=== PATIENT | female | born 1970 | race Caucasian/White ===

== ENCOUNTER 2023-01-30 13:11 | Outpatient (CLI) | payer BC, SELFPAY | END 2023-01-30 13:12 | disposition home or self-care (01) | LOC: NFLDREF 13:12 | PROVIDERS: Visit Provider Physician Assistant | DX: N93.8 Other specified abnormal uterine and vaginal bleeding (principal); R53.83 Other fatigue; E55.9 Vitamin D deficiency, unspecified; I10 Essential (primary) hypertension | CPT/HCPCS: 84443 ==

== ENCOUNTER 2023-02-01 07:00 | Outpatient (CLI) | payer BC, SELFPAY ==
--- NOTE | 2023-02-01 07:15 | CRLHL7_ITS ---
For Patients: As a result of the Century Cures Act, medical imaging exams and procedure reports are released immediately into your electronic medical record. You may view this report before your referring provider. If you have questions, please contact your health care provider. CLINICAL HISTORY: Abnormal bleeding right-sided pain TECHNIQUE: Real time, cosme scale images were acquired of the pelvis using a transabdominal and transvaginal approach. Color Doppler analysis was performed of the ovaries. FINDINGS: The uterus measures 12.5 x 5.6 x 7.2 centimeters. The endometrium measures 1.1 centimeters. The right ovary measures 6.5 x 3.6 x 4.7 centimeters right ovarian cyst measuring 4.6 x 2.7 x 4.1 centimeters normal blood flow to the right ovary on color Doppler. The left ovary is surgically absent. Myomatous uterus. Posterior uterine fibroid measuring 4.9 x 2.3 x 4.5 centimeters which appears to impinge on the endometrium. Subserosal small mid uterine fibroid measuring 1.5 x 1.2 x 1.7 centimeters. A fundal fibroid measuring 2 x 1.6 x 2 centimeters possible impingement of the endometrium as well. IMPRESSION: 1. 1.1 centimeter endometrium. Myomatous uterus with 2 fibroids, one small fibroid in the fundus and a posterior uterine fibroid could be impinging on the endometrium. Dictated by Jimena Diaz MD @ 02/03/2023 10:18:58 AM (Electronically Signed)
== END 2023-02-01 07:01 | disposition home or self-care (01) ==
PROVIDERS: Visit Provider Physician Assistant
DX: N93.8 Other specified abnormal uterine and vaginal bleeding (principal); D25.9 Leiomyoma of uterus, unspecified
CPT/HCPCS: 76830; 76856; 93976

== ENCOUNTER 2023-06-05 14:20 | Outpatient (CLI) | payer BC, SELFPAY ==
--- NOTE | 2023-06-05 15:00 | CRLHL7_ITS ---
For Patients: As a result of the Century Cures Act, medical imaging exams and procedure reports are released immediately into your electronic medical record. You may view this report before your referring provider. If you have questions, please contact your health care provider. INDICATION: FOLLOW UP RIGHT OVARIAN CYST COMPARISON: 02/01/2023 TECHNIQUE: 2D cosme scale and color Doppler images were acquired of the pelvis using a transabdominal and transvaginal approach. FINDINGS: Multiple uterine fibroids again noted. There is a posterior mid fibroid measuring 4.2 x 3.2 x 4.0 cm with mild mass effect upon the endometrium. A posterior fundal fibroid is present measuring 1.5 x 1.1 x 1.7 cm. There is also a posterior fundal fibroid measuring 2.0 x 1.7 x 1.5 cm. Uterus measures 13.5 cm in length by 5.6 cm in AP diameter by 7.8 cm in transverse dimension. The myometrium has a heterogeneous echotexture. The endometrial lining measures 9 mm in composite thickness. The right ovary measures 4.6 x 2.7 x 2.6 cm in size and the left ovary is absent. The right ovary demonstrates normal arterial and venous blood flow on color Doppler analysis. There are no suspicious fluid collections within the cul-de-sac. IMPRESSION: Previously noted right ovarian cyst has since resolved. Multiple uterine fibroids again noted measuring up to 4.2 cm. Dictated by Henrry Can MD @ 06/06/2023 10:47:46 AM (Electronically Signed)
== END 2023-06-05 14:21 | disposition home or self-care (01) ==
PROVIDERS: PCP Internal Medicine; Visit Provider Obstetrics & Gynecology
DX: N93.8 Other specified abnormal uterine and vaginal bleeding (principal); D25.9 Leiomyoma of uterus, unspecified
CPT/HCPCS: 76830; 76856

== ENCOUNTER 2023-11-21 09:53 | Outpatient (CLI) | payer BC, SELFPAY | END 2023-11-21 09:54 | disposition home or self-care (01) | LOC: NFLDREF 11-25 15:46 | PROVIDERS: PCP Internal Medicine; Referring Provider Internal Medicine; Visit Provider Obstetrics & Gynecology | DX: R10.2 Pelvic and perineal pain (principal) | CPT/HCPCS: 87086 ==

== ENCOUNTER 2023-12-03 11:06 | Outpatient (CLI) | payer BC, SELFPAY ==
--- NOTE | 2023-12-03 11:30 | CRLHL7_ITS ---
For Patients: As a result of the Century Cures Act, medical imaging exams and procedure reports are released immediately into your electronic medical record. You may view this report before your referring provider. If you have questions, please contact your health care provider. INDICATION: Pelvic pain, abnormal uterine bleeding, increased bloating. TECHNIQUE: Transabdominal and transvaginal pelvic ultrasound. FINDINGS: Uterus is anteverted and measures 14.3 x 6.1 x 7.9 cm. The body and fundus are poorly seen on the transvaginal images due to shadowing. Endometrial stripe thickness is between 1.2 1.8 cm. 2 cm mass in the fundal endometrium, probably either a polyp or submucosal leiomyoma. Additional leiomyomas measuring 2.9 and 1.5 cm in the posterior uterus. Left ovary has been surgically removed. Right ovary was seen transabdominally only. It appears normal and is normal color and spectral Doppler flow. IMPRESSION: 1. 2 cm mass in the fundal endometrium, most likely either a submucosal leiomyoma or polyp. 2. Additional leiomyomas in the uterus. 3. Left oophorectomy. Dictated by Pilo Judge MD @ 12/04/2023 12:07:06 PM (Electronically Signed)
== END 2023-12-03 11:07 | disposition home or self-care (01) ==
LOC: US 11:06
PROVIDERS: PCP Internal Medicine; Visit Provider Obstetrics & Gynecology
DX: R10.2 Pelvic and perineal pain (principal); R19.00 Intra-abdominal and pelvic swelling, mass and lump, unspecified site; D25.9 Leiomyoma of uterus, unspecified; N84.1 Polyp of cervix uteri; N93.8 Other specified abnormal uterine and vaginal bleeding
CPT/HCPCS: 76830; 76856; 93976

== ENCOUNTER 2023-12-10 10:00 | Outpatient (CLI) | payer BC, SELFPAY | END 2023-12-10 10:01 | disposition home or self-care (01) | LOC: NFLDREF 12-13 02:41 | PROVIDERS: PCP Internal Medicine; Referring Provider Internal Medicine; Visit Provider Obstetrics & Gynecology | DX: E83.52 Hypercalcemia (principal); Z13.29 Encounter for screening for other suspected endocrine disorder | CPT/HCPCS: 80053; 82306; 83970; 84439; 84443 ==

== ENCOUNTER 2023-12-14 07:29 | Outpatient (CLI) | payer BC, SELFPAY ==
--- NOTE | 2023-12-14 08:00 | CRLHL7_ITS ---
For Patients: As a result of the Century Cures Act, medical imaging exams and procedure reports are released immediately into your electronic medical record. You may view this report before your referring provider. If you have questions, please contact your health care provider. Indication: LEIOMYOMA OF UTERUS, ABD BLOATING, ABD + PELVIC PAIN MYOMATOUS UTERUS Technique: CT Abdomen/Pelvis W/ 95CC ISOVUE 370 Please note that all CT scans at this facility use dose modulation, iterative reconstruction, and/or weight-based dosing when appropriate to reduce radiation dose to as low as reasonably achievable. Comparison: 11.19.17 Findings: Mild linear subsegmental atelectasis within the anterior left lung base. No pleural effusion. Small pericardial effusion. Subcentimeter cysts within the liver are present. Gallbladder absent. No biliary obstruction. Spleen is normal. Normal adrenal glands. 3 millimeter calcification lower pole left kidney. Bilateral water attenuation renal cysts are present measuring up to 2.8 cm. Small hiatal hernia. No bowel obstruction, free air, free fluid or adenopathy. The appendix normal. No abdominal wall hernia. Bladder is normal. Fibroid uterus noted with a prominent left-sided uterine fibroid measuring 5.3 cm. Right ovarian cyst is present measuring 2.8 cm Impression: Posterior left uterine fibroid measures 5.3 cm. 2.8 cm right ovarian cyst. Subcentimeter intrahepatic cysts. Bilateral renal cysts measuring up to 2.8 cm. No hydronephrosis. Small pericardial effusion. Please note that all CT scans at this facility use dose modulation, iterative reconstruction, and/or weight-based dosing when appropriate to reduce radiation dose to as low as reasonably achievable. Dictated by Henrry Can MD @ 12/14/2023 10:40:00 AM (Electronically Signed)
== END 2023-12-14 07:30 | disposition home or self-care (01) ==
LOC: CT 07:29
PROVIDERS: PCP Internal Medicine; Visit Provider Internal Medicine Nephrology
DX: D25.9 Leiomyoma of uterus, unspecified (principal); I31.39 Other pericardial effusion (noninflammatory); N83.201 Unspecified ovarian cyst, right side; R19.8 Other specified symptoms and signs involving the digestive system and abdomen; N93.9 Abnormal uterine and vaginal bleeding, unspecified; R10.2 Pelvic and perineal pain
CPT/HCPCS: 74177; Q9967

== ENCOUNTER 2023-12-20 08:06 | Day surgery (SDC) | payer BC, SELFPAY ==
[2023-12-20] VITALS (19 sets, daily range): BP systolic 99–148; BP diastolic 52–94; PULSE 75–92; RESP 14–17; TEMP 36.5–37.2; O2SAT 93–100; BMI 32.9
[2023-12-20] MEDS: LACTATED RINGERS 1000 ML 1,000 ML 100 ML IV ×2 (08:25→11:25)
--- NOTE | 2023-12-20 08:38 | W.PM.H&PU ---
History & Physical Update History & Physical Update H&P Reviewed and patient assessed: No changes noted
[2023-12-20] MEDS: SODIUM CHLORIDE 0.9 % (FLUSH) 10 ML SYRINGE IVF (09:23)
[2023-12-20 09:28] LABS: Hemoglobin* 13.3 gm/dL (12.0-16.0)
[2023-12-20 09:44] LABS: Creatinine* 0.8 mg/dL (0.5-1.5); Est. Creatinine Clearance* 72.65; Estimated Glomerular Filt Rate 90 ml/min
[2023-12-20 09:52] LABS: HCG Qualitative Serum* Negative (Negative)
[2023-12-20] MEDS: metroNIDAZOLE 500 MG/100 ML PIGGYBACK 100 MG IVPB (10:35)
[2023-12-20] MEDS: GENTAMICIN 340 MG in 0.9 % SODIUM CHLORIDE 100 ml 100 ML 108.5 MG IVPB (10:40)
--- NOTE | 2023-12-20 11:12 | P.NB_ITS ---
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 Images saved: Yes Medications given in 5ml increments after negative aspiration: Marcaine %: 0.25 mL: 30 Needle gauge: 20 and Exparel mL: 10 Patient tolerated procedure well: Yes Additional comments: Needle noted between internal oblique and transversus abdominus. Local spread visualized Block Charges Block Charge (with Pro Fee): TAP Bilateral Use of Ultrasound Machine for Block: Yes- US Guidance/pain block
--- NOTE | 2023-12-20 11:12 | W.ANESCHARGE ---
Anesthesia Charges Start Date/Time Anesthesia Start Date: 12/20/23 Anesthesia Start Time: 10:02 Stop Date/Time Anesthesia Stop Date: 12/20/23 Anesthesia Stop Time: 13:30
[2023-12-20] MEDS: BUPIVACAINE 0.25% 30 ML INJECTION (12:55)
--- NOTE | 2023-12-20 13:29 | W.PM.GYNPROC ---
Procedure Note Date of procedure: 12/20/23 Will [facility] bill your pro fee for this procedure?: Yes Pre-op diagnosis: Abnormal uterine bleeding, uterine fibroids and endometrial polyps Post-op diagnosis: Abnormal uterine bleeding, uterine fibroids and endometrial polyps Procedure: Total laparoscopic hysterectomy, right salpingectomy, cystoscopy Anesthesia: GETA Complications: None Surgeon: Myesha Bassett MD [employer] Pumping Station Helper: Sherry Asencio Estimated blood loss (mL): 250 IV fluids (mL): 1,700 Urine Output (mL): 600 Pathology: specimen obtained, sent to pathology (Uterus, right fallopian tube ) Condition: stable Disposition: floor Findings: Normal external female genitalia. Bimanual exam pelvic exam completed prior to sterilizing field, uterus anteverted of about 14cm and mobile. Speculum exam: large, multiparous cervix w/o gross lesions or abnormal discharge. Intra abdominal findings: Grossly normal liver, stomach and intestines. Uterus anteverted of about 14-15cm. Evidence of previous left salpingo- oophorectomy, grossly normal right fallopian tube. Right ovary of about 3cm and benign appearing small hemorrhagic cyst of about 1.5cm. Procedure Description: DESCRIPTION OF PROCEDURE: After obtaining informed consent, the patient was taken to the operating room where general anesthesia was obtained without difficulty. She was prepared and draped in the normal sterile fashion in the low dorsal lithotomy position. A Hendrix catheter was inserted into the bladder and left to gravity drainage. A medium Graves open-sided speculum was introduced into the vagina. The cervix was visualized and grasped along its anterior lip with a single-tooth tenaculum. The uterus was gently sounded. Sound length was found to be 8 cm. No need for cervical dilation. I then placed a x- large VCare uterine manipulator. The tenaculum and speculum were removed. The green VCare cup was digitally pressed up against the cervix and then cinched in place with the blue accessory cup. I then changed gloves and my attention was turned to the abdomen. The superior aspect of the umbilical fold was injected with 0.25% Marcaine plain. A 5 mm vertical incision was then made within the umbilical fold using a scalpel. A direct entry technique was used and a 5 mm laparoscopic port with CO2 gas set at 5mmHg was introduced under direct visualization. The trocar was removed leaving the sleeve in place. The CO2 gas flow was turned to high flow to achieve pneumoperitoneum. The 5 mm laparoscope was used then to carefully inspect the abdomen and pelvis with findings noted above. Pictures were taken for documentation purposes. The patient was placed in Trendelenburg positioning. Two additional ports were placed in the right and left lower quadrants under direct visualization after first anesthetizing the skin and fascia with 0.25% Marcaine plain. On the left side a 11mm port was utilized and on the right side a 5mm port placed. An additional 5mm port was placed on the abdomen at the level of the umbilicus to the left of umbilicus, about 3-4 cm lateral from umbilicus under direct visualization. Once the ports were in place, the VCare manipulator was used to elevate the uterus. The ureters were identified bilaterally along their courses in the pelvic sidewalls. The VCare cup was visualized and palpated with a blunt grasper. The right tube was elevated with a graspers. The Thunderbeat device was used to dissect the tube from it's ovarian and broad ligament and cornual attachments before removing the tube through a lower port. Excellent hemostasis was obtained. The remaining broad ligament attachments were sealed and transected with the Thunderbeat device. The right round ligament was then sealed in a wide swath and transected with the Thunderbeat, excellent hemostasis was obtained. The broad ligament was then opened using the Thunderbeat anteriorly and posteriorly along the cervix from the right within the confines of the VCare cup. Pressure was maintained on the uterine manipulator the whole time. The right uterine vessels were sealed in a wide swath and transected with the Thunderbeat, then the tissues over the VCare cup edge on the right side were thinned using the Thunderbeat to the midline posteriorly and anteriorly so that the fascial layer could be identified. The left round ligament was then sealed in a wide swath and transected with the Thunderbeat, excellent hemostasis was obtained. The broad ligament was then opened using the Thunderbeat anteriorly and posteriorly along the cervix from the left within the confines of the VCare cup. Pressure was maintained on the uterine manipulator the whole time. The left uterine vessels were sealed in a wide swath and transected with the Thunderbeat, then the tissues over the VCare cup edge on the left side were thinned using the Thunderbeat to the midline posteriorly and anteriorly so that the fascial layer could be identified. Once an adequate dissection was made circumferentially, the Thunderbeat device was utilized to dissect until identification of the green Vcare cup, then a Monopolar spatula was utilized to dissect tissue tissue circumferentially around the cervix within the groove of the VCare cup. On the left side a small vaginal vessel was noted to be bleeding and pumping, attempts to coagulate this vessel were attempted with the Thunderbeat device, monopolar device unsuccessfully. Decision was made to culminate colpotomy and remove uterus so that the bleeder could be suture ligated. Colpotomy was continued and completed circumferentially, from the vagina the uterine manipulator and the uterus were removed. This created pressure on the small bleeding vessel and after removal of the uterus the site was noted to be hemostatic. A glove with 3 sponges was placed in the vagina to aid in maintaining pneumoperitoneum. The vaginal cuff was reapproximated in a running fashion with a V-Loc suture starting from the right side and running across to the left and then back to the midline where the suture was cut flush with the tissues. The pelvis was copiously irrigated and hemostasis visualized. Preparations were then made for cystoscopy. Fluorescein was administered intravenously along with the IV fluids. The Hendrix catheter was removed. The patient was flattened out. Cystoscopy was performed using sterile normal saline as distending medium. The bladder was carefully inspected and noted to be free of filling defects or suture material. Both ureteral orifices were easily visualized and fluorescein tinged urine jets were noted from both sides. The cystoscope was then removed. The Hendrix catheter was replaced into the bladder. Speculum exam of the vagina completed and noted complete closure of the vaginal tissue, w/o evidence of bleeding. Attention was once again turned to the abdomen. The abdomen and pelvis were again irrigated and inspected for hemostasis. Attention was then placed to the 11mm port site and under direct visualization using a Bart-Smith system the fascia was closed. All instruments were then removed under direct visualization. Pneumoperitoneum was allowed to escape. The skin at all port sites was closed in a subcuticular fashion with 4-0 Monocryl. LiquiBand was then placed over the incisions. The patient tolerated the procedure well. Sponge, lap, needle, and instrument counts were reported as correct x2. The patient was taken to the recovery room awake and in stable condition. She did receive Metronidazole 500mg IV and Gentamicin 340mg IV x1 preoperatively. PATHOLOGY SPECIMEN(S): Uterus and right fallopian tube.
--- NOTE | 2023-12-20 13:37 | W.ANESCHARGE ---
Anesthesia Charges Start Date/Time Anesthesia Start Date: 12/20/23 Anesthesia Start Time: 10:02 Stop Date/Time Anesthesia Stop Date: 12/20/23 Anesthesia Stop Time: 13:30
[2023-12-20] MEDS: KETOROLAC 30 MG/ML inj IVP (19:30)
[2023-12-20] MEDS: ACETAMINOPHEN 325 MG TABLET 1000 MG PO (21:35)
[2023-12-21] MEDS: KETOROLAC 30 MG/ML inj IVP (01:45)
[2023-12-21 02:00] VITALS: BP 105/62; PULSE 66; RESP 16; TEMP 37; O2SAT 96
[2023-12-21] MEDS: LORazepam 0.5 MG TABLET PO (02:16)
[2023-12-21 06:23] VITALS: BP 90/52; PULSE 79; RESP 16; TEMP 37.1; O2SAT 96
[2023-12-21 07:13] LABS: Hemoglobin* 10.9 gm/dL (12.0-16.0)
--- NOTE | 2023-12-21 07:31 | P.DS_ITS ---
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 Indications for surgery were menorrhagia. Intraoperative findings were notable for surgical absence of the left tube and ovary. The uterus was enlarged and bulky, with specimen weight 252 g. Cystoscopy revealed bilateral ureteral jets. There were no complications. Postoperative course has been uneventful. Vitals have been stable. She has remained afebrile. Today, on postoperative day 1, she reports the pain is well controlled. She has been able to ambulate Without difficulty. She is tolerating regular diet. She is passing flatus. Hendrix catheter has been removed, and she is voiding without difficulty. She denies heavy vaginal bleeding. 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 Laparoscopic port sites clean, dry, and intact. Soft, no rebound or guarding. 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 - DS: Data Data Completed and Pending Labs on day of discharge: Labs from last 24 hours 12/21/23 12/20/23 07:00 09:22 Hgb 10.9 L 13.3 Creatinine Pending 0.8 Estimated Creat Clear 72.65 Estimated GFR Pending 90 HCG, Qual Negative Creatinine 0.9 this morning, estimated GFR 78 Procedures Procedures: Procedures Operation Date: 12/20/23 09:40 Actual Procedure Side Surgeon p M/S-Total Laparoscopic Hysterectomy, Right Salpingectomy, Cystoscopy Romina Bassett MD Complications: none Discharge Plan Discharge Disposition: Home w/ Parent or Adult Discharging Surgeon: Romina Bassett Follow-Up Appointment: Dr. Glez, [facility], January 02 @ 8:45 am Prescriptions: New acetaminophen 325 mg Tablet 1,000 mg PO Q6H PRN (Reason: minor pain) Qty: 0 0RF docusate sodium 100 mg Capsule 100 mg PO BID PRN (Reason: Constipation) Qty: 0 0RF ibuprofen 600 mg Tablet 600 mg PO Q6H Qty: 0 0RF oxycodone 5 mg Tablet 5 mg PO Q4H PRN (Reason: Moderate Pain) Qty: 20 0RF Continued albuterol 90 mcg/actuation aerosol 2 spray inhalation .PRN PRN lorazepam 0.5 mg tablet 0.5 mg PO .Daily as needed PRN albuterol sulfate 2.5 mg /3 mL (0.083 %) solution for nebulization 2.5 mg inhalation .PRN PRN levalbuterol tartrate [Xopenex HFA] 45 mcg/actuation HFA aerosol inhaler 2 inh inhalation Q4-6H PRN cetirizine [All Day Allergy (cetirizine)] 10 mg tablet 10 mg PO DAILY PRN budesonide 1 mg/2 mL suspension for nebulization 1 mg inhalation BID Activity Level: Activity as Tolerated Activity Detail: No driving while taking narcotic pain medicines. Do not submerge incisions under water. Nothing per vagina for 6 weeks. No heavy lifting greater than 20 lb. Discharge Diet: Regular Patient Instructions: Laparoscopic Hysterectomy (DC) Follow-up: Romina Bassett MD [Staff Physician] - 01/03/24 8:45 am Elsi Chakraborty [Primary Care Provider] - Discharge Orders: Discharge Order (Routine); Ordered 12/21/23 Ordered By: Sherry Asencio Consulting provider completed their portion of the discharge: Yes
[2023-12-21 07:34] LABS: Creatinine* 0.9 mg/dL (0.5-1.5); Est. Creatinine Clearance* 64.58; Estimated Glomerular Filt Rate 78 ml/min
[2023-12-21] MEDS: ACETAMINOPHEN 325 MG TABLET 1000 MG PO (07:54)
[2023-12-21 09:00] VITALS: BP 106/62; PULSE 73; RESP 16; TEMP 37.1; O2SAT 97
[2023-12-21] MEDS: IBUPROFEN 600 MG TABLET PO (12:14)
== END 2023-12-21 13:15 | disposition home or self-care (01) ==
LOC: OR 08:07 → OB 08:11
PROVIDERS: Anesthesiology; PCP Internal Medicine; Visit Provider Obstetrics & Gynecology
PROC: 0UT94ZZ Resection of Uterus, Percutaneous Endoscopic Approach (ICD-10-PCS; CPT 58573; principal; 2023-12-20 09:30)
DX: N93.8 Other specified abnormal uterine and vaginal bleeding (principal); N84.0 Polyp of corpus uteri; D25.1 Intramural leiomyoma of uterus; G89.18 Other acute postprocedural pain; N83.201 Unspecified ovarian cyst, right side; Z90.79 Acquired absence of other genital organ(s); Z90.721 Acquired absence of ovaries, unilateral
CPT/HCPCS: 58573; 00840; 36415; 64488; 76942; 82565; 84703; 85018; 86850; 86900; 86901; 88307; A9270; C9290; J0330; J0665; J1100; J1580; J1630; J1836; J1885; J2250; J2405; J2704; J3010; J3490; J7120

== ENCOUNTER 2023-12-29 16:47 | Emergency (ER) | payer BC, SELFPAY ==
[2023-12-29 16:55] VITALS: BP 145/73; PULSE 75; RESP 16; TEMP 36.3; O2SAT 98; BMI 32.6
--- NOTE | 2023-12-29 17:19 | ED_ITS ---
HPI - General Adult General Chief complaint: Post Op Complication Stated complaint: post op (hysterectomy) swelling Time Seen by Provider: 12/29/23 16:53 History of Present Illness HPI narrative: This 53-year-old female comes in reporting some redness around the laparoscopic sites on her abdomen from a surgery that occurred 9 days ago. She had a hysterectomy at that time and has been doing well since then. Today she developed some erythema extending out around the laparoscopic sites in her right and left lower quadrants and also in her mid abdomen. The area in her mid abdomen that has erythema and warmth is approximately 5 cm in diameter. She states that this has occurred today. She does not report any fever. There is no drainage from these surgical wounds. Related Data Home Medications ?Medication ?Instructions ?Recorded ?Confirmed albuterol 90 mcg/actuation aerosol 2 spray inhalation .PRN PRN 01/30/23 12/20/23 inhaler albuterol sulfate 2.5 mg/3 mL 2.5 mg inhalation .PRN PRN 01/30/23 12/20/23 (0.083 %) solution for nebulization lorazepam 0.5 mg tablet 0.5 mg PO .Daily as needed PRN 01/30/23 12/20/23 budesonide 1 mg/2 mL suspension 1 mg inhalation BID 12/18/23 12/20/23 for nebulization cetirizine 10 mg tablet (All Day 10 mg PO DAILY PRN 12/18/23 12/20/23 Allergy (cetirizine)) levalbuterol tartrate 45 2 inh inhalation Q4-6H PRN 12/18/23 12/20/23 mcg/actuation aerosol inhaler (Xopenex HFA) Previous Rx's ?Medication ?Instructions ?Recorded acetaminophen 325 mg tablet 1,000 mg (3.0769 x 325 mg) PO Q6H 12/21/23 PRN minor pain #0 tabs docusate sodium 100 mg capsule 100 mg PO BID PRN Constipation #0 12/21/23 caps ibuprofen 600 mg tablet 600 mg PO Q6H #0 tabs 12/21/23 oxycodone 5 mg tablet 5 mg PO Q4H PRN Moderate Pain #20 12/21/23 tabs Allergies Allergy/AdvReac Type Severity Reaction Status Date / Time buspirone [From BuSpar] Allergy Mild Verified 12/29/23 16:55 cephalexin Allergy Hives Verified 12/20/23 08:46 desvenlafaxine Allergy Unknown Verified 12/29/23 16:55 doxycycline Allergy Rash Verified 12/29/23 16:55 levofloxacin Allergy Rash Verified 12/29/23 16:55 amoxicillin AdvReac Intermediate Unknown Verified 12/29/23 16:55 atomoxetine AdvReac Intermediate Unknown Verified 12/29/23 16:55 benzalkonium chloride AdvReac Intermediate Rash Verified 12/29/23 16:55 clarithromycin AdvReac Intermediate Hives Verified 12/29/23 16:55 escitalopram AdvReac Intermediate Anger Verified 12/29/23 16:55 fluticasone AdvReac Intermediate Headache Verified 12/29/23 16:55 hydrocortisone AdvReac Intermediate Unknown Verified 12/20/23 08:46 neomycin AdvReac Intermediate Unknown Verified 12/29/23 16:55 polymyxin B AdvReac Intermediate Unknown Verified 12/29/23 16:55 propylene glycol AdvReac Intermediate Unknown Verified 12/29/23 16:55 fluorestore Allergy eye Uncoded 12/20/23 09:33 swelling Review of Systems Status of ROS: Reports: 10 or more systems reviewed and unremarkable except as noted in History and below Narrative: Constitutional: No fevers, no weight gain or loss. Eyes: No discharge. No vision changes. HENT: No congestion, no sore throat, no ear pain. Cardiovascular: No chest pain, no palpitations. Respiratory: No shortness of breath, no wheezes, no cough. Gastrointestinal: No abdominal pain, no vomiting, no diarrhea. Genitourinary: No dysuria, no hematuria. Musculoskeletal: Normal range of motion. Skin: No rashes, no pruritis. Neurological: No dizziness, weakness, sensory change, speech change. Endo/Heme/Allergies: No bruising or bleeding. No polydipsia. Pysch: no suicidality, no anxiety, no insomnia. All other systems reviewed and are negative. 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 - Intestinal malabsorption, unspecified (ICD-10) Metabolic syndrome ?E88.810 - Metabolic syndrome (ICD-10) Low ferritin level ?R79.0 - Abnormal level of blood mineral (ICD-10) Wheat intolerance ?K90.41 - Non-celiac gluten sensitivity (ICD-10) Controlled substance agreement signed ?Z79.899 - Other longterm (current) drug therapy (ICD-10) Allergic rhinitis ?J30.9 - Allergic rhinitis, unspecified (ICD-10) Vitamin D deficiency ?E55.9 - Vitamin D deficiency, unspecified (ICD-10) History of vaginal delivery Eating disorder ?F50.9 - Eating disorder, unspecified (ICD-10) Endometrial polyp ?N84.0 - Polyp of corpus uteri (ICD-10) Surgical History (Updated 12/21/23 @ 07:32 by Sherry Asencio MD) History of D&C (06/26/16) ?Z98.890 - Other specified postprocedural states (ICD-10) History of cholecystectomy ?Z90.49 - Acquired absence of other specified parts of digestive tract (ICD- 10) History of laparoscopy (01/29/18) ?Z98.890 - Other specified postprocedural states (ICD-10) Family History (Updated 01/30/23 @ 11:54 by Kandy Davis PA-C) Mother Cirrhosis FH: mental illness Father High blood pressure Maternal Grandmother Breast cancer Maternal Grandfather Asthma Heart disease History of anesthesia problem Son Seizure disorder Social History (Updated 01/30/23 @ 14:19 by Kandy Davis PA-C) 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 Walks 2 times per week Nonsmoker, no alcohol use, no illicit drug use Safe at home and no concerns with abuse What is your current living situation?: I presently have a place to live Problems where you live: no known problems In the past 12 months, utilities in danger of being shut off: no In past 12 months, lack of transportation kept you from medical appts, meetings, work, or getting things needed for daily living: no In the past 12 mos, have been you worried that your food would run out before you had money to buy more?: never true In the past 12 mos, the food you bought just didn't last and you didn't have money to buy more?: never true Smoking Status: Never smoker How often do you have a drink containing alcohol: never AUDIT-C Alcohol total score: 0 Non-prescribed substance use: denies use Caffeine: No How often does anyone, including family, friends and others, physically hurt you : never How often does anyone, including family, friends and others, insult or talk down to you: never How often does anyone, including family, friends and others, threaten you with harm: never How often does anyone, including family, friends and others, scream or curse at you: never service: No Exam Narrative: Exam Narrative: Constitutional: Well-developed, well-nourished, no acute distress. HEENT: Normocephalic, atraumatic. Neck: Normal range of motion. Nontender. Supple. Heart: Regular. No murmurs. Normal rate. Intact distal pulses. Lungs: Clear to auscultation. No chest discomfort. No wheezes, rhonchi, or rales. Abdomen: Normal bowel sounds. Nontender. No rebound tenderness. Genitalia: Deferred. Back: No midline tenderness. Normal range of motion. Extremities: Normal range of motion. No injury. Skin: Intact. No rash. Warm. No erythema or pallor. Surgical laparoscopic wounds on the abdomen are intact but 3 of them have some surrounding erythema that is new today. No sign of abscess or fluid collection. No drainage. Neurologic: No altered sensation. No weakness. Alert and oriented. Psychiatric: No suicidality. No anxiety or depression. No insomnia. Nursing notes and vitals signs are reviewed. Const: Vital Signs, click to edit/add: Vital Signs - 24 hr 12/29/23 16:55 Temperature 97.3 F L Pulse Rate [Pulse Oximeter] 75 Respiratory Rate 16 Blood Pressure [Le ft Upper Arm] 145/73 H Pulse Oximetry 98 Oxygen Delivery Me thod Room Air Course Vital Signs Vital signs: Initial Vital Signs Temperature 97.3 F L 12/29/23 16:55 Temperature Source Temporal Artery Scan 12/29/23 16:55 Pulse Rate 75 12/29/23 16:55 Respiratory Rate 16 12/29/23 16:55 Blood Pressure 145/73 H 12/29/23 16:55 Blood Pressure Mean 97 12/29/23 16:55 Blood Pressure Position High-Fowlers 12/29/23 16:55 Pulse Oximetry 98 12/29/23 16:55 Oxygen Delivery Method Room Air 12/29/23 16:55 Vital Signs Temperature 97.3 F L 12/29/23 16:55 Pulse Rate 75 12/29/23 16:55 Respiratory Rate 16 12/29/23 16:55 Blood Pressure 145/73 H 12/29/23 16:55 Pulse Oximetry 98 12/29/23 16:55 Oxygen Delivery Method Room Air 12/29/23 16:55 Temperature 97.3 F L 12/29/23 16:55 Pulse Rate 75 12/29/23 16:55 Respiratory Rate 16 12/29/23 16:55 Blood Pressure 145/73 H 12/29/23 16:55 Pulse Oximetry 98 12/29/23 16:55 Oxygen Delivery Method Room Air 12/29/23 16:55 Medical Decision Making MDM Narrative Medical decision making narrative: This patient had a hysterectomy 9 days ago and now is having some skin changes at her surgical sites that is suspicious for an evolving cellulitis. There is no sign of abscess or drainage. I did discuss lab and imaging options but indicated that these would likely have low yield for determining how to treat. The patient has numerous allergies. She did received prescription for doxycycline and does have a follow-up appointment with OBGYN clinic in 5 days. Discharge Plan Discharge Clinical Impression: Cellulitis Patient Disposition: Home, Self-Care Condition: Stable Additional Instructions: Take medication as prescribed. Follow up with OBGYN clinic appointment as sched uled. Return if worsening. Prescriptions: No Action albuterol 90 mcg/actuation aerosol 2 spray inhalation .PRN PRN lorazepam 0.5 mg tablet 0.5 mg PO .Daily as needed PRN albuterol sulfate 2.5 mg /3 mL (0.083 %) solution for nebulization 2.5 mg inhalation .PRN PRN levalbuterol tartrate [Xopenex HFA] 45 mcg/actuation HFA aerosol inhaler 2 inh inhalation Q4-6H PRN cetirizine [All Day Allergy (cetirizine)] 10 mg tablet 10 mg PO DAILY PRN budesonide 1 mg/2 mL suspension for nebulization 1 mg inhalation BID acetaminophen 325 mg Tablet 1,000 mg PO Q6H PRN (Reason: minor pain) Qty: 0 0RF docusate sodium 100 mg Capsule 100 mg PO BID PRN (Reason: Constipation) Qty: 0 0RF ibuprofen 600 mg Tablet 600 mg PO Q6H Qty: 0 0RF oxycodone 5 mg Tablet 5 mg PO Q4H PRN (Reason: Moderate Pain) Qty: 20 0RF Follow Up/Referrals: Elsi Chakraborty [Primary Care Provider] - Stand Alone Forms: [facility] Info Instructions
--- OUTSIDE RECORDS SUMMARY | 2023-12-29 17:31 | XMS_ITS | Clinical Summary ---
Author Organization [facility] Address [address] [address] Care Team Providers Care Case Checker Name Role Phone Ishaan Lomas DO Primary Care Provider [phone] Source Comments You are receiving this document as you are listed as the primary care provider,follow-up provider, or the patient has been referred to you for consultation.This is in compliance with the Medicare and[facility] EHR Incentive Program,which states Providers who transition their patient to another setting of careor provider of care or refers their patient to another provider of care shouldprovide summary care record for each transition of care or referral. [employer] Allergies Active Allergy Reactions Criticality Noted Date Comments Amoxicillin Rash 11/25/2015 Atomoxetine Hives 11/25/2015 Benzalkonium Chloride Other, see comments 11/24 PN: reddened, swollen skin with topical use Clarithromycin Hives 11/25/2015 Escitalopram Hives High 06/05/2017 Fluticasone 07/03/2011 Other reaction(s): Headache Hydrocortisone 06/16/2016 Other reaction(s): Other (see comments) Cerner list no reaction Neomycin-Bacitracin Zn-Polymyx Rash 01/02/2014 Other reaction(s): Edema Penicillins 12/17/2018 Fluoxetine 12/17/2018 Sertraline 12/17/2018 Medications Medication Sig Dispensed Refills Start Date End Date Status cetirizine (ZYRTEC) 10 MG tablet Take 1 tablet by mouth daily (every 24 hours). 30 tablet 0 11/25/2015 Active triamcinolone (NASACORTAQ) 55 MCG/ACT nasal inhaler Place 2 sprays into each nostril daily (every 24 hours). Dose is for each nostril. Indications: NASAL CONGESTION 49.5 g 3 11/25/2015 Active albuterol 2.5 mg/3 mL, 0.083%, (PROVENTIL) nebulizer solution Inhale 1 Dose. 02/07/2010 Ac tive budesonide, INHALATION, (PULMICORT) 1 MG/2ML suspension Inhale 2 mL. 01/05/2015 Activ e budesonide, INHALATION, (PULMICORT) 1 MG/2ML suspension INHALE 1 VIAL PER NEBULIZER BID NEEDED FOR FLARES 0 10/31/2018 Active LORazepam (ATIVAN) 0.5 MG tablet TK 1 T PO Q 6 H PRA 0 11/15/2018 Ac tive Cholecalciferol (VITAMIN D3) 05657 units CAPS TK 1 C PO ONCE A WEEK FOR 8 DOSES 1 11/05/2018 Active ferrous sulfate 325 (65 Fe) MG tablet Take 325 mg by mouth daily with breakfast. Active multivitamin (THERAGRAN) tablet Take 1 Tablet by mouth daily. Active Probiotic Product (SUPER PROBIOTIC OR) Active Family History Medical History Relation Name Comments Anxiety Father Depression Mother Anxiety Son Relation Name Status Comments Father Mother Son Social History Tobacco Use Types Packs/Day Years Used Date Smoking Tobacco: Never Smokeless Tobacco: Never Alcohol Use Standard Drinks/Week Comments Never 0 (1 standard drink = 0.6 oz pur e alcohol) AUDIT-C Answer Date Recorded Frequency of Alcohol Consumption Never 12/17/2018 Average Number of Drinks Not on file 019 Frequency of Binge Drinking Not on file 02/2019 Sex and Gender Information Value Date Recorded Sex Assigned at Not on file Gender Identity Not on file Sexual Orientation Not on file Last Filed Vital Signs Vital Sign Reading Time Taken Comments Blood Pressure 151/112 12/17/2018 1:22 PM CDT Pulse 103 12/17/2018 1:22 PM CDT Temperature - - Respiratory Rate - - Oxygen Saturation 98% 11/25/2015 8:35 AM CDT Inhaled Oxygen Concentration - - Weight 74.8 kg (164 lb 14.5 oz) 12/17/2018 1:17 PM CDT Height 161.2 cm (5' 3.47) 12/17/2018 1:17 PM CD T Body Mass Index 28.79 12/17/2018 1:17 PM CDT Plan of Treatment Health Maintenance Due Date Last Done Comments Cervical Cancer Screening Due 1972 Colon Cancer Screening Plan Due 1972 Hep C Screening (Preventive Services) 1972 Mammogram 1972 HIV Screening (Preventive Services) 1988 Adult Preventive Visit 1990 HepB (1) 12/28/1991 DTaP/Tdap/Td (2 - Tdap) 07/27/2021 07/27/2011 Zoster/Shingles (1 of 2) 2022 COVID-19 Vaccine (1 - 2022-2 4 season) 2023 Cholesterol 12/18/2023 12/17/2018 Influenza (#1) 2024 HepA Aged Out No longer eligi ble based on patient's age to complete this topic Hib Aged Out No longer eligi ble based on patient's age to complete this topic IPV (Polio) Aged Out No longer eligi ble based on patient's age to complete this topic MCV4 Aged Out No longer eligi ble based on patient's age to complete this topic Pneumococcal Aged Out No longer eligi ble based on patient's age to complete this topic Procedures Procedure Name Priority Date/Time Associated Diagnosis Comments LIPID PANEL & DIRECT LDL (IF NEEDED) STAT 12/17/2018 2:06 PM CDT Eating disorder, unspecified type from Last 3 Months or Most Recently Relevant to Health Maintenance Results * (ABNORMAL) Lipid Panel and Direct LDL(If Needed) (12/17/2018 2:06 PM CDT) Cholesterol 202(H) 0 - 199 mg/dL 12/17/2018 4:47 PM CDT [facility] Triglyceride 103 <=149 mg/dL 12/17/2018 4:47 PM CDT [facility] HDL Cholesterol 43 >=40 mg/dL 9 4:47 PM CDT [facility] LDL, Calculated 138(H) <130 mg/dL 9 4:47 PM CDT [facility] Non HDL Chol, Calculated 159 <=159 mg/dL 12/17/2018 4:47 PM CDT [facility] Cholesterol/HDL Ratio 4.7 12/17/2018 4:47 PM CDT [facility] Hours Fasting 0 12/17/2018 4:47 PM CDT [facility] Blood Venipuncture / Unknown 12/17/2018 2:06 PM CDT 12/17/2018 3:50 PM CDT Neeru Dubon PA-C LAB_1 [facility] [address] [place] [address], [facility] from Last 3 Months or Most Recently Relevant to Health Maintenance Care Teams Case Checker Relationship Specialty Start Date End Date Ishaan Lomas DO [address] [facility] [place] [id number] PCP - General 10/29/15
--- OUTSIDE RECORDS SUMMARY | 2023-12-29 17:31 | XMS_ITS | Clinical Summary ---
Author Organization [employer] [facility] Address [place], [place] [address] Care Team Providers Care Senior Net Developer Name Role Phone Elsi Chakraborty Primary Care Provider Allergies Active Allergy Reactions Criticality Noted Date Comments Amoxicillin Rash Medium 06/25/2006 Benzalkonium Chloride Rash High 11/25/2015 PN: reddened, swollen skin with topical use Clarithromycin Hives High 06/25/2006 Cephalexin Hives,Diarrhea,Runn y Nose,Palpitations,C ough High 06/18/2020 Desvenlafaxine Succinate *Unknown Unknown 03/23/2021 Fluticasone Headache High 07/03/2011 Levofloxacin Rash Medium 06/09/2021 Escitalopram Oxalate *Unknown - Pt Doesn't Remember Unknown 01/11/2017 Doxycycline Rash Medium 06/14/2021 Neomycin Edema,Erythema High 03/23/2021 Krwikncx-Oxikgycito-Ozcqg yxin Edema,Erythema High 01/02/2014 Unlisted Allergen (Include Detail In Comments) Shortness Of Breath High 12/05/2019 Fluorestore (probiotic) Started having some swelling in her eyes, tongue was tingling, some sob. Atomoxetine Other - Describe In Comment Field High 06/12/2014 Voice changes. Medications Medication Sig Dispensed Refills Start Date End Date Status levalbuterol (XOPENEX HFA) 45 mcg/actuation inhalerIndication s:Wheezing without diagnosis of asthma Inhale 2 Puffs by mouth every 4 hours if needed. 1 Inhaler 2 04/30/2020 Active budesonide (PULMiCORT) 1 mg/2 mL neb suspensionIndicat ions:Post-COVID chronic cough Inhale 1 mg via a nebulizer two times daily. 60 mL 08/25/2022 Active albuterol (PROVENTIL) 0.083 % neb solutionIndicatio ns:Acute bronchitis, unspecified organism Inhale 3 mL (2.5 mg) via a nebulizer every 4 hours if needed for Shortness Of Breath or Cough 1st choice. 75 mL 1 11/03/2022 Active cetirizine (ZYRTEC) 10 mg tablet Take 1 Tablet (10 mg) by mouth once daily if needed for Allergy Symptoms. 0 04/06/2023 Active acetaminophen (Tylenol Extra Strength) 500 mg tablet Take 1,000 mg by mouth every 6 hours. Max acetaminophen dose: 4000mg in 24 hrs. Active ibuprofen (ADVIL; MOTRIN) 200 mg tablet Take 200 mg by mouth every 6 hours. Active EPINEPHrine (EPIPEN) 0.3 mg/0.3 mL auto-injectorIndi cations:Bee sting allergy Inject 0.3 mg (1 Pen) intramuscular each time if needed for Allergic Reaction. 2 Each 3 12/14/2023 Active oxyCODONE (ROXICODONE) 5 mg immediate release tablet Take 5 mg by mouth. 12/21/2023 Active polyethylene glycol 3350 (MIRALAX ORAL) Take by mouth. Active LORazepam (Ativan) 0.5 mg tabIndications:An xiety state Take 1 Tablet (0.5 mg) by mouth every 6 hours if needed for Anxiety or Sleep. 30 Tablet 2 01/06/2024 Active hydrOXYzine HCL (ATARAX) 25 mg tabletIndications :Neck pain, acute Take 1 Tablet (25 mg) by mouth every 6 hours if needed (pain). 25 Tablet 2 08/24/2023 4 Discontinue d(*Patient states no longer taking) LORazepam (Ativan) 0.5 mg tabIndications:An xiety state Take 1 Tablet (0.5 mg) by mouth every 6 hours if needed for Anxiety. 30 Tablet 1 10/12/2023 4 Discontinue d(Reorder (E-cancel not sent)) Active Problems Problem Noted Date Diagnosed Date Bee sting allergy 12/14/2023 Uterine leiomyoma 12/14/2023 Pap smear for cervical cancer screening 01/10/20 23 Overview: 01/2023 UNS/HPV negative. Plan: Pap/HPV due 01/2024. Stress at home 08/18/2022 Chronic constipation 08/11/2022 Influenza vaccination declined 07/05/2022 Pneumococcal vaccination declined 07/05/2022 COVID-19 vaccination declined 07/05/2022 Basal cell carcinoma 12/17/2020 Skin cancer 12/14/2020 Overview: BCC - 11/2020 on the central upper back. ED&C done on 01/04/21 with Rafita Yeager MD. Mild intermittent asthma without complication Metabolic syndrome 11/19/2019 Anemia 10/14/2019 Abnormal intestinal absorption 08/11/2019 Low ferritin level 07/14/2019 HTN (hypertension) 01/06/2019 Wheat intolerance 12/18/2018 History of left salpingo-oophorectomy 02/08/2018 ADHD (attention deficit hype ractivity disorder), inattentive type 12/28/2017 Controlled substance agreement signed 07/16/2017 Overview: Signed 07/13/2017 Dr Sherry Millan Psychiatry Eating disorder 10/09/2016 Metrorrhagia 06/16/2016 Major depressive disorder, recurrent episode, mi ld 12/03/2014 ALLERGIC RHINITIS 07/11/2006 Anxiety state, unspecified 07/11/2006 Vitamin D deficiency Resolved Problems Problem Noted Date Diagnosed Date Resolved Date Hemorrhoids, external 11/30/20212022 COVID-19 virus infection 05/19/202105/2024 ADHD (attention deficit hype ractivity disorder), inattentive type 12/28/2017 09/27/2018 Multiple somatic complaints 07/18/2017 01/12/2023 Eczema 06/16/2016 01/12/2023 MITRAL VALVE PROLAPSE 07/11/20062022 ADHD (attention deficit hype ractivity disorder) 09/27/2018 Encounters Date Type Department Care Team Description 12/28/2023 4:00 PM CDT Telemedicine [address] [address] Elsi Chakraborty, DO Mental Health Intake; Sleep Problem 12/26/[address] [place] [address] Elsi Chakraborty DO Refill Request (Epinephrine) 12/20/[address] [facility] [phone] Romina Bassett MD 12/19/[address] [place] [address] Elsi Chakraborty DO Results (CT Scan) 12/18/2023 Nurse Triage [address] [place] [address] Elsi Chakraborty DO Questions (Question regarding CT scan from 12/14/2023 for Frances Bassett MD [employer] ) 12/14/2023 3:40 PM CDT Office Visit [address] [place] [address] Elsi Chakraborty DO Mental Health Intake 12/14/2023 Orders Only [facility] Scanner 1 scan: (1-Ord) [place], ABDOMEN PELVIS, 12/14/2023 12/14/2023 Travel 12/07/2023 2:40 PM CDT Office Visit [address] [place] [address] Elsi Chakraborty DO Mental Health Intake 12/07/2023 Travel 12/05/2023 11:00 AM CDT Office Visit [address] [place] [address] Jaqueline Shultz MD Neck Pain/problem (lymph node swelling) 12/05/2023 Travel 12/03/2023 Orders Only [facility] Scanner 1 scan: (1-Ord) [facility] [place], 12/03/2023 11/30/2023 9:00 AM CDT Telemedicine [facility] [address] [place] [address] Usha Live NP Telehealth; Follow Up 11/29/2023 2:40 PM CDT Preop Visit [address] [place] [address] Elsi Chakraborty DO Preoperative Exam (Hysterectomy on 12/20/[address] Adhikari at [facility]) 11/29/2023 Travel 11/28/2023 Telephone [facility] [address] [place] [address] Usha Live NP Form (CSA) 11/26/2023 Telephone [facility] [address] [place] [address] Usha Live NP Appointment 11/21/2023 7:55 AM CDT Office Visit [address] [place] [address] Ly Maciel NP Medication Management 11/21/2023 Travel 11/13/2023 11:18 AM CDT - 11/13/2023 3:46 PM CDT Emergency [facility] [address] [place] [address] Neal Rico MD Atypical chest pain (Primary Dx); Adverse effect of drug, initial encounter Discharge Disposition: Home Self Care 11/13/2023 Travel 11/13/2023 Nurse Triage [address] [place] [address] Elsi Chakraborty DO Chest Pain 11/02/2023 3:40 PM CDT Office Visit [address] [place] [address] Elsi Chakraborty DO Mental Health Intake 11/02/2023 Travel 10/27/2023 Travel 10/16/2023 Orders Only [address] [place] [address] Elsi Chakraborty DO Screening (Colonoscopy order only) 10/12/2023 3:40 PM CDT Office Visit [address] [phone] Elsi Chakraborty, DO Mental Health Intake 10/12/2023 Travel from Last 3 Months Immunizations Name Administration Dates Next Due MMR 01/22/1991 Tdap 01/19/2022,07/27/2011 Varicella Vaccine 01/19/1995,12/13/1994 Family History Medical History Relation Name Comments Allergies Father Hypertension Father Allergies Maternal Grandfather Anesthesia Problem Maternal Grandfather Asthma Maternal Grandfather Heart Disease Maternal Grandfather Cancer-breast Maternal Grandmother Osteoporosis Maternal Grandmother Other Mother Cirrhosis Psychiatric illness Mother Alcohol/Drug Paternal Grandfather Seizures Son 5 Allergies Son 6 Asthma Son 7 Relation Name Status Comments Father Alive Maternal Grandfather Maternal Grandmother Mother Alive Paternal Grandfather Paternal Grandmother Sister Son 1 Alive Son 2 Alive Son 3 Alive Son 4 Alive Son 5 Son 6 Son 7 Social History Tobacco Use Types Packs/Day Years Used Date Smoking Tobacco: Never Passive Smoke Exposure: Past Smokeless Tobacco: Never Tobacco Cessation:Counseling Given: Not Answered Alcohol Use Standard Drinks/Week Comments Not Currently 0 (1 standard drink = 0.6 oz pur e alcohol) none PHQ-2 Answer Date Recorded PHQ-2 TOTAL SCORE 4 11/30/2023 Social Connections Answer Date Recorded Frequency of Communication with Friends and Fami ly 0 11/21/2023 Financial Resource Strain Answer Date R ecorded Difficulty of Paying Living Expenses 3 11/21/2023 Difficulty of Paying Living Expenses Not on file 11/21/2023 Food Insecurity Answer Date Recorded Worried About Running Out of Food in the Last Ye ar 1 11/21/2023 Transportation Needs Answer Date Record ed Lack of Transportation (Medical) 1 11/21/2023 Housing Stability Answer Date Recorded Unable to Pay for Housing in the Last Year 1 11/21/2023 Sex and Gender Information Value Date Recorded Sex Assigned at Not on file Gender Identity Not on file Sexual Orientation Not on file Obstetrics History Para Term AB IAB SAB Ectopic Multiple Livin g Live Births 6 4 4 0 2 0 2 0 0 4 Date Outcome GA Total Labor Labor/2nd/3rd Weight Sex Type Anes PTL Kena A1 A5 Name Clin Term Term Term SAB SAB Term Last Filed Vital Signs Vital Sign Reading Time Taken Comments Blood Pressure 132/68 12/14/2023 4:02 PM CDT Pulse 83 12/14/2023 4:02 PM CDT Temperature 37 ??C (98.6 ??F) 11/13/2023 11: 34 AM CDT Respiratory Rate 16 12/14/2023 4:02 PM CDT Oxygen Saturation 98% 12/14/2023 4:02 PM CDT Inhaled Oxygen Concentration - - Weight 89.7 kg (197 lb 12.8 oz) 12/07/2023 3:00 PM CDT Height 162.6 cm (5' 4) 11/29/2023 2:58 PM CDT Body Mass Index 33.95 11/29/2023 2:58 PM CDT Plan of Treatment Upcoming Encounters Date Type Department Care Team (Late st Contact Info) Description 01/04/2024 4:00 PM CDT Office Visit [address] [phone] Elsi Chakraborty [address] [address] 01/07/2024 8:00 AM CDT Telemedicine [facility] [address] [place] [address] Usha Live NP [address] [place] [address] 01/11/2024 4:00 PM CDT Office Visit [address] [address] Elsi Chakraborty DO [address] [place] [address] 01/18/2024 4:00 PM CDT Office Visit [address] [address] Elsi Chakraborty DO [address] [place] [address] 01/24/2024 3:00 PM CDT Office Visit [facility] [address] [place] [address] Elsi Chakraborty, DO [address] [place] [address] 02/01/2024 4:00 PM CDT Office Visit [facility] [address] [place] [address] Elsi Chakraborty, DO [address] [place] [address] 03/27/2024 11:00 AM CDT Office Visit [facility] [address] [place] [address] Nelda Medina [employer] [address] [place] [address] Health Maintenance Due Date Last Done Comments HIV for age 15-65 12/28/1987 Zoster (shingles) series for age 50+ (1 of 2) 2022 COVID-19 vaccine series (2022-24 season) 2023 Colonoscopy through age 75 11/21/2023 11/20/2018 Pap test for age 21-65 01/13/2024 , 01/07/2020, 09/06/2015, Additional history exists Influenza for age 50-64 02/10/2024 Mammogram for age 45-75 09/03/2024 09/04/19 24, 03/30/2022, 01/11/2021, Additional history exists BMI (ht and wt on same day) for age 18+ 11/28/2024 11/29/2023, 08/24/2023, 07/30/2023, Additional history exists Depression screening for age 12+ 11/29/2024 11/30/2023, 11/21/2023, 03/20/2023, Additional history exists Lipids for age 45-75 01/17/2027 01/17/2022, 04/07/2020, 01/05/2020, Additional history exists Tetanus booster 01/20/2032 01/19/2022, 07/27/2011 Hepatitis C screening for age 18-79 Completed 01/17/2022 Tdap Completed 01/19/2022, 07/27/2011 Pneumococcal series for age 6-64 Aged Out No longer eligible based on patient's age to complete this topic Procedures Procedure Name Priority Date/Time Associated Diagnosis Comments LAB TRACKING EVENT Routine 12/20/2023 12 :18 PM CDT PATH TISSUE EXAM Routine 12/20/2023 12:1 0 PM CDT SCAN-CT INTERPRETATION 4 12:00 AM CDT SCAN-ULTRASOUND REPORT 4 12:00 AM CDT CBC WITH AUTO DIFFERENTIAL Routine 11/29/2023 4:08 PM CDT Preoperative general physical examination HTN (hypertension) COMP METABOLIC PANEL Routine 11/29/2023 4:08 PM CDT Preoperative general physical examination HTN (hypertension) CBC WITH AUTO DIFFERENTIAL Routine 11/29/2023 4:08 PM CDT Preoperative general physical examination HTN (hypertension) TROPONIN T (HS) ONE TIME Timed 11/13/2023 2:13 PM CDT XR CHEST 2 VIEWS PA AND LATERAL STAT 11/13/2023 12:41 PM CDT ISTAT CHEM 8 CLINIC ONLY AND [facility] Timed 11/13/2023 12:24 PM CDT TROPONIN I QUAL POC Timed 11/13/2023 1 2:21 PM CDT TROPONIN T (HS) ACUTE W/2HR REFLEX STAT 11/13/2023 12:13 PM CDT CBC W PLT NO DIFF STAT 11/13/2023 12: 13 PM CDT EKG 12 LEAD STAT 11/13/2023 12:09 PM CDT CBC WITH AUTO DIFFERENTIAL Routine 10/27/2023 9:39 AM CDT Leukocytosis, unspecified type CBC WITH AUTO DIFFERENTIAL Routine 10/27/2023 9:39 AM CDT Leukocytosis, unspecified type XR MAMMO EDWARD BILAT SCREEN Routine 09/04/2023 7:43 AM CDT Encounter for other screening for malignant neoplasm of breast HPV THIN PREP Routine 01/12/2023 4:00 PM CDT Pap smear for cervical cancer screening ANTI HCV Routine 01/17/2022 10:00 AM CDT Need for hepatitis C screening test LIPID PANEL W REFLEX MEASURED LDL Routine 01/17/2022 10:00 AM CDT Metabolic syndrome SCAN-COLONOSCOPY 11/20/2018 3:00 PM CDT from Last 3 Months or Most Recently Relevant to Health Maintenance Results * LAB TRACKING EVENT (12/20/2023 12:18 PM CDT) Other (Other) Client Collect / Unknown 12/20/2023 12:18 PM CDT 12/20/2023 9:57 PM CDT Romina Bassett MD LAB BILL O NLY [facility] [address] [place] [address], * PATH TISSUE EXAM (12/20/2023 12:10 PM CDT) Case Report Pathology Report ?Case: [id number] ? Authorizing Provider: ??Romina Bassett ??Collected: ? 12/20/2023 1210 ? MD Marvin ? Ordering Location: ? [facility] ?Received: ?12/21/2023 0724 ? Pathologist: ? Vi Hook MD ? Specimen: ?Uterus, and right fallopian tube ? 12/25/2023 11:08 AM T [facility] LAB[facility]AT[facility] Final Diagnosis A) UTERUS WITH CERVIX AND RIGHT FALLOPIAN TUBE, TOTAL HYSTERECTOMY WITH SALPINGECTOMY: 1. Cervix: Small benign endocervical polyps 2. Endometrium: Weak secretory changes with breakdown 3. Myometrium: Nine intramural leiomyomata, 0.4-4.2 cm 4. Uterine serosa: No diagnostic abnormality 5. Right fallopian tube: No abnormality 6. Uterine weight: 238 grams 7. Negative for malignancy 12/25/2023 11:08 AM T [facility] Clinical Information Abnormal uterine bleeding 12/25/2023 11:08 AM T [facility] Gross Description A) Received in formalin, labeled with the patient's name and uterus and right fallopian tube, is a 238 gram(uterus and cervix weight only), 11.5 (fundus/cervix) by 7.3 (cornu-cornu) by 6.1 (anterior-posteri or) cm simple hysterectomy and unattached fimbriated fallopian tube specimen. The 3.9 cm long, 3.4 cm diameter cervix has a 1.3 cm cervical os. The ectocervical mucosa is smooth with a distinct squamocolumnar junction. The endocervical canal is patent. The endometrium is 0.5 cm thick. No endometrial lesions are identified. ??There is a 1.6 x 0.7 x 0.3 cm posterior endocervical broad-based polyp limited to the mucosa. ??There is an additional 0.7 x 0.3 x 0.2 cm purple pedunculated anterior endocervical polyp. ??There are 9, 0.4-4.2 cm, pink rubbery well-circumscribe d intramural nodules with white whorling pattern and no evidence of necrosis or calcifications. ??There is a small amount of hemorrhage within 1 intramural nodule. ??The myometrium is 2.0 cm thick. The serosa is smooth. Unattached right fallopian tube and fimbria: 6.6 cm in length by 0.5 cm in diameter fimbriated fallopian tube. ??The serosal surfaces smooth and glistening with a small amount of adhesions. ??The cut surface has a stellate lumen and unremarkable mucosa. [employer] Production sections and entire fimbria are submitted: 1. Anterior cervix 2. Posterior cervix with polyp 3. ??Anterior cervical polyp 4. ??Anterior uterine wall, full-thickness 5. Posterior uterine wall, full-thickness 6-10. ??Intramural nodules 11. ??Right fallopian tube and entire fimbria Time and date in formalin: 1218 on 12/20/2023 TRS 12/21/2023 12/25/2023 11:08 AM [facility] Microscopic Description The final diagnosis is based on microscopic examination of appropriate sections of all specimens. The intramural leiomyomata display patchy perinodular hydropic change and focal bizarre nuclei. ??No abnormal mitotic activity or necrosis is seen. 12/25/2023 11:08 AM CDT [facility] Additional Information Interpreted at [facility] - [address] [facility] [address], [place] [address] 12/25/2023 11:08 AM CDT [facility] Other SPECIMEN FROM UTERUS / Unknown 12/20/2023 12:10 PM CDT 12/21/2023 7:24 AM CDT Romina Bassett MD PATHOLOGY/ CYTOLOGY [facility] [address] [place] [address], * SCAN-CT INTERPRETATION (12/14/2023 12:00 AM CDT) Anatomical Region Laterality Modality Other Scanner OTHER * SCAN-ULTRASOUND REPORT (12/03/2023 12:00 AM CDT) Anatomical Region Laterality Modality Other Scanner OTHER * (ABNORMAL) CBC WITH AUTO DIFFERENTIAL (11/29/2023 4:08 PM CDT) Only the most recent of2 resultswithin the time period is included. WHITE BLOOD COUNT 10.1 4.5 - 11.0 thou/cu mm 11/29/2023 4:21 PM T [facility] RED BLOOD COUNT 4.63 4.00 - 5.20 mil/cu mm 11/29/2023 4:21 PM [facility] HEMOGLOBIN 13.6 12.0 - 16.0 g/dL 11/29/2023 4:21 PM [facility] HEMATOCRIT 41.9 33.0 - 51.0 % 11/29/2023 4:21 PM [facility] MCV 91 80 - 100 fL 11/29/2023 4:21 PM [facility] MCH 29.4 26.0 - 34.0 pg 11/29/2023 4:21 PM [facility] MCHC 32.5 32.0 - 36.0 g/dL 11/29/2023 4:21 PM [facility] RDW 13.5 11.5 - 15.5 % 11/29/2023 4:21 PM [facility] PLATELET COUNT 358 140 - 440 thou/cu mm 11/29/2023 4:21 PM [facility] MPV 9.5 6.5 - 11.0 fL 11/29/2023 4:21 PM [facility] % NEUT 71.0 % 11/29/2023 4:21 PM [facility] % LYMPH 16.8 % 11/29/2023 4:21 PM [facility] % MONO 8.6 % 11/29/2023 4:21 PM [facility] % EOS 3.4 % 11/29/2023 4:21 PM [facility] % BASO 0.2 % 11/29/2023 4:21 PM [facility] ABSOLUTE NEUTROPHILS 7.2(H) 1.7 - 7.0 thou/cu mm 11/29/2023 4:21 PM [facility] ABSOLUTE LYMPHOCYTES 1.7 0.9 - 2.9 thou/cu mm 11/29/2023 4:21 PM [facility] ABSOLUTE MONOCYTES 0.9(H) <0.9 thou/cu mm 11/29/2023 4:21 PM [facility] ABSOLUTE EOSINOPHILS 0.3 <0.5 thou/cu mm 11/29/2023 4:21 PM [facility] ABSOLUTE BASOPHILS 0.0 <0.3 thou/cu mm 11/29/2023 4:21 PM [facility] Blood BLOOD SPECIMEN / Unknown Venipuncture / Unknown 11/29/2023 4:08 PM T 11/29/2023 4:08 PM T Elsi Chakraborty DO HEMATOLOGY [facility] [address] [place] [address] * (ABNORMAL) COMP METABOLIC PANEL (11/29/2023 4:08 PM T) SODIUM 140 136 - 145 mmol/L 11/29/2023 4:40 PM [facility] POTASSIUM 3.7 3.5 - 5.1 mmol/L 11/29/2023 4:40 PM [facility] CHLORIDE 102 98 - 107 mmol/L 11/29/2023 4:40 PM [facility] CO2,TOTAL 27 22 - 29 mmol/L 11/29/2023 4:40 PM [facility] ANION GAP 11 5 - 18 11/29/2023 4:40 PM [facility] GLUCOSE 96 70 - 99 mg/dL 11/29/2023 4:40 PM [facility] CALCIUM 10.4(H) 8.6 - 10.0 mg/dL 11/29/2023 4:40 PM [facility] BUN 14 6 - 20 mg/dL 11/29/2023 4:40 PM [facility] CREATININE 0.79 0.50 - 0.90 mg/dL 11/29/2023 4:40 PM [facility] BUN/CREAT RATIO 18 10 - 20 4:40 PM [facility] eGFR >90 >90 mL/min/1.7 3m2 11/29/2023 4:40 PM [facility] Comment:As of 2021, eG FR is calculated by the CKD-EPI creatinine equation without race adjustment. ??eGFR can be influenced by muscle mass, exercise, and diet. ??The reported eGFR is an estimation only and is only applicable if the renal function is stable. ALBUMIN 4.6 4.0 - 4.9 g/dL 11/29/2023 4:40 PM [facility] PROTEIN,TOTAL 7.9 6.0 - 8.0 g/dL 11/29/2023 4:40 PM [facility] BILIRUBIN,TOTAL 0.2 0.0 - 1.2 mg/dL 11/29/2023 4:40 PM CDT [facility] ALK PHOSPHATASE 93 35 - 104 IU/L 11/29/2023 4:40 PM CDT [facility] ALT (SGPT) 9(L) 10 - 35 IU/L 11/29/2023 4:40 PM CDT [facility] AST (SGOT) 21 10 - 35 IU/L 11/29/2023 4:40 PM CDT [facility] Blood BLOOD SPECIMEN / Unknown Venipuncture / Unknown 11/29/2023 4:08 PM CDT 11/29/2023 4:08 PM CDT Elsi Chakraborty DO CHEMISTRY [facility] [address] [place] [address] * TROPONIN T (HS) ONE TIME (11/13/2023 2:13 PM CDT) TROPONIN T HS 8 6-10 ng/L ng/L 11/13/2023 3:05 PM CDT [facility] Blood BLOOD SPECIMEN / Unknown Venipuncture / Unknown 11/13/2023 2:13 PM CDT 11/13/2023 2:17 PM CDT Neal Rico MD CHEMISTRY Performing Organization Address City/[facility]/ZIP Co de Phone Number [facility] [address] [place] [address] * XR CHEST 2 VIEWS PA AND LATERAL (11/13/2023 12:41 PM CDT) Anatomical Region Laterality Modality CHEST, THORAX, Lung, HEART Digit al Radiography 11/13/2023 12:4 4 PM CDT Impressions 11/13/2023 12:44 PM CDT No evidence of acute cardiopulmonary disease. Dictated by Bertin Orantes MD @ 11/13/2023 12:44:51 PM (Electronically Signed) Narrative 11/13/2023 12:44 PM CDT For Patients: ??As a result of the Cures Act, medical imaging exams and procedure reports are released immediately into your electronic medical record. ??You may view this report before your referring provider. ??If you have questions, please contact your health care provider. INDICATION: Chest pain. TECHNIQUE: Chest 2 views. COMPARISON: 06/06/2023. FINDINGS: No pneumothorax or pleural effusion. Lungs are clear. Cardiac and mediastinal contours are within normal limits. Upper abdomen and osseous structures as imaged show no acute abnormality. Procedure Note Bertin Orantes, - 11/13/2023 For Patients: As a result of the Cures Act, medical imagingexams and procedure reports are released immediately into your electronicmedical record. You may view this report before your referring provider.If you have questions, please contact your health care provider. INDICATION: Chest pain. TECHNIQUE: Chest 2 views. COMPARISON: 06/06/2023. FINDINGS: No pneumothorax or pleural effusion. Lungs are clear. Cardiac andmediastinal contours are within normal limits. Upper abdomen and osseousstructures as imaged show no acute abnormality. IMPRESSION: No evidence of acute cardiopulmonary disease. Dictated by Bertin Orantes MD @ 11/13/2023 12:44:51 PM (Electronically Signed) Neal Rico MD GENERAL IMAGING * (ABNORMAL) ISTAT CHEM 8 (SELECTED SITES ONLY) (11/13/2023 12:24 PM CDT) SODIUM, POCT 140 135 - 145 mmol/L 11/13/2023 12:28 PM CDT [facility] POTASSIUM, POCT 3.7 3.5 - 5.0 mmol/L 11/13/2023 12:28 PM CDT [facility] CHLORIDE, POCT 104 98 - 107 mmol/L 11/13/2023 12:28 PM CDT [facility] CO2,TOTAL, POCT 27 21 - 31 mmol/L 11/13/2023 12:28 PM CDT [facility] ANION GAP, POCT 13 5 - 18 12:28 PM CDT [facility] GLUCOSE, POCT 100(H) 70 - 99 mg/dL 11/13/2023 12:28 PM T [facility] IONIZED CALCIUM, POCT 1.19 1.15 - 1.27 mmol/L 11/13/2023 12:28 PM T [facility] BUN, POCT 14 8 - 25 mg/dL 11/13/2023 12:28 PM T [facility] CREATININE, POCT 0.80 0.57 - 1.11 mg/dL 11/13/2023 12:28 PM T [facility] Comment:Caution: Patients ta blas Hydroxyurea have falsely increased iStat Creatinine results. Verify creatinine results ordering a Creatinine (36400.2) BUN/CREAT RATIO, POCT 18 10 - 20 11/13/2023 12:28 PM [facility] eGFR 90(L) >90 mL/min/1.7 3m2 11/13/2023 12:28 PM [facility] Comment:As of 2021, eG FR is calculated by the CKD-EPI creatinine equation without race adjustment. eGFR can be influenced by muscle mass, exercise, and diet. The reported eGFR is an estimation only and is only applicable if the renal function is stable. Blood BLOOD SPECIMEN / Unknown 11/13/2023 12:24 PM CDT 11/13/2023 12:28 PM CDT Neal Rico MD CHEMISTRY [facility] [address] [place] [address] * TROPONIN I QUAL POC (11/13/2023 12:21 PM CDT) TROPONIN I,QUAL,POC Negative Negative 11/13/2023 12:35 PM T [facility] TROPONIN I,QUAL, POCT <0.03 <0.03 11/13/2023 12:35 PM T [facility] Blood BLOOD SPECIMEN / Unknown 11/13/2023 12:21 PM CDT 11/13/2023 12:35 PM CDT Neal Rico MD CHEMISTRY [facility] [address] [place] [address] * TROPONIN T (HS) ACUTE W/2HR REFLEX (11/13/2023 12:13 PM CDT) TROPONIN T HS 8 6-10 ng/L ng/L 11/13/2023 1:59 PM CDT [facility] Blood BLOOD SPECIMEN / Unknown Venipuncture / Unknown 11/13/2023 12:13 PM CDT 11/13/2023 12:17 PM CDT Narrative [facility] - 11/13/2023 1:59 PM CDT hs-cTnT (Elecsys Troponin T Gen 5) concentration (s) above the sex-specific 99th percentile (16 ng/L or greater for males or 11 ng/L or greater for females) are indicative of myocardial injury. If initial hs-cTnT <=100 ng/L at presentation, a 0h/2h ABSOLUTE (ng/L) delta change (rising or falling) of >=10 ng/L suggests a significant change, whereas a 0h/2h delta change <=3 ng/L suggests no significant change. If initial hs-cTnT >100 ng/L at presentation, a 0h/2h/ RELATIVE (percent, %) delta change of 20% is suggested to distinguish patients with acute vs. chronic myocardial injury. There are multiple etiologies that can cause hs-cTnT increases above the 99th percentile (myocardial injury) other than acute myocardial infarction. Clinical context and careful clinical evaluation are critical for diagnosis and risk-stratification. The diagnosis of acute myocardial infarction requires a rising and/or falling pattern in hs-cTnT concentrations with at least one value above the sex-specific 99th percentile PLUS at least one of the following clinical criteria: ischemic symptoms, new or presumed new significant ST-T wave changes or new LBBB, development of pathological Q waves, imaging evidence of new loss of viable myocardium or new regional wall motion abnormality, or identification of intracoronary atherothrombosis or an acute angiographic culprit on coronary angiography. In appropriate low-risk patients with a non-ischemic electrocardiogram without active chest pain with a symptom onset >3-hours without recurrence, a single initial hs-cTnT<6 ng/L identifies patient with a very low risk in emergency department patient population. Neal Rico MD CHEMISTRY [facility] [address] [address] * CBC W PLT NO DIFF (11/13/2023 12:13 PM CDT) WHITE BLOOD COUNT 9.0 4.5 - 11.0 thou/cu mm 11/13/2023 12:21 PM T [facility] RED BLOOD COUNT 4.63 4.00 - 5.20 mil/cu mm 11/13/2023 12:21 PM [facility] HEMOGLOBIN 13.8 12.0 - 16.0 g/dL 11/13/2023 12:21 PM [facility] HEMATOCRIT 41.5 33.0 - 51.0 % 11/13/2023 12:21 PM [facility] MCV 90 80 - 100 fL 11/13/2023 12:21 PM [facility] MCH 29.8 26.0 - 34.0 pg 11/13/2023 12:21 PM [facility] MCHC 33.3 32.0 - 36.0 g/dL 11/13/2023 12:21 PM [facility] RDW 14.0 11.5 - 15.5 % 11/13/2023 12:21 PM [facility] PLATELET COUNT 335 140 - 440 thou/cu mm 11/13/2023 12:21 PM [facility] MPV 9.5 6.5 - 11.0 fL 11/13/2023 12:21 PM [facility] Blood BLOOD SPECIMEN / Unknown Venipuncture / Unknown 11/13/2023 12:13 PM CDT 11/13/2023 12:17 PM CDT Neal Rico MD HEMATOLOGY Performing Organization Address [facility] Co de Phone Number [facility] [address] [place] [address] * EKG 12 LEAD (11/13/2023 12:09 PM CDT) Interpretation Normal sinus rhythm Possible Left atrial enlargement Borderline ECG When compared with ECG of 09-FEB-2023 20:27, No significant change was found BEYOND NOW Ventricular Rate 71 BPM BEYOND NOW Atrial Rate 71 BPM BEYOND NOW P-R Interval 152 ms BEYOND NOW QRS Duration 72 ms BEYOND NOW QT 388 ms BEYOND NOW QTc 421 ms BEYOND NOW P Sadler 64 degrees BEYOND NOW R Sadler 47 degrees BEYOND NOW T Sadler 30 degrees BEYOND NOW 11/13/2023 12:0 9 PM CDT 11/13/2023 12:16 PM CDT Neal Rico MD EKG ORD Performing Organization Address [facility] [[email or web address]] de Phone Number BEYOND NOW [place], [place] * XR MAMMO EDWARD BILAT SCREEN (09/04/2023 7:43 AM CDT) Anatomical Region Laterality Modality BREASTS, Breast Left, Breast Right Bilateral Mammography Impressions 09/04/2023 8:21 AM CDT ??There is no radiographic evidence for malignancy. ??Recommend annual mammograms. MAMMOGRAM ASSESSMENT: ??ACR 2 Benign PATIENTS: You will also receive a letter with your examination results in an easy to read format. ??If you have questions about your results, please contact your referring provider. Narrative 09/04/2023 8:21 AM CDT For Patients: As a result of the 21st Century Cures Act, medical imaging exams and procedure reports are released immediately into your electronic medical record. You may view this report before your referring provider. If you have questions, please contact your health care provider. XR MAMMO EDWARD BILAT SCREEN [[id number]] CLINICAL HISTORY: ??This is an asymptomatic 52 y.o. patient. INDICATION FOR EXAM: Mammogram Screening. TECHNIQUE: CC & MLO views were obtained. ??This study was evaluated with the assistance of Computer-Aided Detection. Breast Tomosynthesis was used in interpretation. COMPARISON FILMS: Yes 03/30/22 ? FINDINGS: ??The breasts are heterogeneously dense, which may obscure small masses. ??No suspicious masses or microcalcifications. ??There is a benign appearing asymmetry of right breast. Elsi Chakraborty DO MAMMO * HPV HIGH RISK (01/12/2023 4:00 PM CDT) TYPE 16 Negative Negative 01/17/2023 2:55 PM CDT [facility] TYPE 18 Negative Negative 01/17/2023 2:55 PM CDT [facility] OTHER HIGH RISK TYPES Negative Negative 01/17/2023 2:55 PM CDT [facility] Other (Cervical/Vagina l) Non-Blood / Unknown 01/12/2023 4:00 PM CDT 01/15/2023 1:43 PM CDT Narrative [facility] - 01/17/2023 2:55 PM CDT HPV types 16, 18, 31, 33, 35, 39, 45, 51, 52, 56, 58, 59, 66 and 68 DNA were undetectable or below the pre-set threshold. Methodology: Trisha Jaclyn 4800 HPV Test Elsi Chakraborty DO MICROBIOLOGY [facility] [address] [place] [address], * (ABNORMAL) LIPID PANEL W REFLEX MEASURED LDL (01/17/2022 10:00 AM CDT) CHOLESTEROL,TOTAL 224(H) 100 - 199 mg/dL 01/17/2022 10:29 PM CDT [facility] TRIGLYCERIDES 109 <150 mg/dL 01/17/2022 10:29 PM CDT [facility] HDL CHOLESTEROL 42 >40 mg/dL 10:29 PM CDT [facility] NON-HDL CHOLESTEROL 182(H) <145 mg/dl 01/17/2022 10:29 PM CDT [facility] CHOL/HDL RATIO 5.33(H) <4.50 01/17/2022 10:29 PM CDT [facility] LDL CHOLESTEROL 160(H) <=130 mg/dL 01/17/2022 10:29 PM CDT [facility] VLDL CHOLESTEROL 22 <=30 mg/dL 01/17/2022 10:29 PM CDT [facility] PROVIDER ORDERED STATUS RANDOM 01/17/2022 10:29 PM CDT [facility] Blood BLOOD SPECIMEN / Unknown Venipuncture / Unknown 01/17/2022 10:00 AM CDT 01/17/2022 10:03 AM CDT Elsi Chakraborty DO CHEMISTRY Performing Organization Address City/[facility]/ZIP Co de Phone Number [facility] [address] [place] [address], [facility] [address] [place] [address] * ANTI HCV (01/17/2022 10:00 AM CDT) HEPATITIS C ANTIBODY Non-React orly Non-React orly 01/17/2022 9:11 PM CDT [facility] Comment:Antibodies to HCV no t detected; does not exclude the possibility of exposure to HCV. Blood BLOOD SPECIMEN / Unknown Venipuncture / Unknown 01/17/2022 10:00 AM CDT 01/17/2022 10:03 AM CDT Elsi Chakraborty DO SEND OUTS [facility] [address] [place] [address], * SCAN-COLONOSCOPY (11/20/2018 3:00 PM CDT) Narrative Procedure Note Fabrice Hartman MD - 11/20/2018 2:07 PM CDT [facility] [address], [address], [place] [address] Patient Name: Subhash Perez Gender: Female Exam Date: 11/20/2018 Visit Number: [id number] Age: 47 Years Date of : 1970 Attending MD: Fabrice Hartman MD Medical Record#: [id number] Procedure: Colonoscopy Indications: Change in bowel habits Referring MD: Elsi Chakraborty DO Primary MD: Elsi Chakraborty DO Medications: Admitting Medications: 0.9% Normal Saline at TKO Intra Procedure Medications: Patient received monitored anesthesia care. Complications: No immediate complications Procedure: An examination of the heart and lungs was performed and found to be withinacceptable limits. The patient was therefore deemed a reasonablecandidate for endoscopy and sedation. The risks and benefits of the procedure were explained to the patient.After obtaining informed consent, the patient received monitoredanesthesia care and I passed the scope without difficulty via the rectum to the ileum. The appendiceal orificeand ic valve were identified. The quality of the prep was excellent(Miralax/Gatorade Double Prep). This was a complete examination throughout the entire colon. Findings: Normal finding. Location - ileum. Polyp location: transverse colon. Quantity: 1. Size: 2 mm. Polyp shape:sessile. Maneuver: polypectomy was performed with a cold biopsy forceps. Removal: complete. Retrieval: complete. Bleeding: none. Anal canal: normal Samll, 4-5 mm, ulceration in the transverse colon. Biopsy taken with coldforceps. Most c/w NSAID use. Remainder of the exam is normal. Random biopsies were taken throughout the colon to rule out microscopiccolitis. Impression: Change in bowel habit Colorectal polyp detected on colonoscopy Preliminary Plan: The patient and their physician will receive a copy of the pathologyreport as well as pathology-based recommendations for future screening orsurveillance. Repeat colonoscopy in 5 years if one or more polyp(s) are adenomatous or10 years if all polyps are hyperplastic. Return to your primary care provider as needed. Recommendation Comments: 1. High fiber diet, 25 grams daily. 2. Await pathology results. 3. Follow up Dr. Spencer. Order placed. Procedure: Upper GI Endoscopy Indications: Bloating Heartburn Provider: Fabrice Hartman MD Referring MD: Elsi Chakraborty DO Primary MD: Elsi Chakraborty DO Medications: Admitting Medication: 0.9% Normal Saline at TKO Intra Procedure Medications: Patient received monitored anesthesia care. Complications: No immediate complications Procedure: An examination of the heart and lungs was performed within acceptablelimits. The patient was therefore deemed a reasonable candidate forsedation. The risks and benefits were explained to the patient, who appeared tounderstand. After obtaining informed consent, the scope was passed underdirect vision. Throughout the procedure the patient's blood pressure,pulse and oxygen saturations were monitored. The scope was introducedthrough the mouth and advanced to the second portion of duodenum. Findings: Esophagus: The z-line is 38 centimeters from the incisors. Top of the gastric foldsis 38 centimeters from the incisors. *Esophagus Comments: Normal esophagus, biopsy taken from the distal & midesophagus with biopsy forceps Stomach: H. Pylori biopsies taken. The diaphragm hiatus is at 38 centimeters from the incisors. Duodenum: Normal duodenum. Celiac Sprue biopsies taken. Celiac Sprue biopsies taken. Impression: Nausea Heartburn Bloating Preliminary Plan: Return to primary care provider as necessary. Recommendation Comments: 1. Await pathology results. 2. Proceed with planned colon exam. 3. Follow up Dr. Spencer. Order placed. Pathology Results: A: DUODENUM, BIOPSY: 1. Normal small bowel mucosa 2. Negative for celiac disease and other enteropathy B: STOMACH, BIOPSY: 1. Non-erosive reactive gastropathy (see comment) a. Sampling: Antral and body mucosae b. Distribution: Antral mucosa 2. Negative for inflammation, atrophy and Helicobacter C: ESOPHAGUS, DISTAL, BIOPSY: 1. Normal squamous mucosa 2. Negative for reflux changes and eosinophilic esophagitis 3. Negative for columnar mucosa D: ESOPHAGUS, MID, BIOPSY: 1. Normal squamous mucosa 2. Negative for reflux changes and eosinophilic esophagitis 3. Negative for columnar mucosa E: COLON, RANDOM, BIOPSY: 1. Normal colonic mucosa 2. Negative for microscopic, active, and chronic colitis F: COLON ULCER, BIOPSY: 1. Mucosal ulcer, nonspecific (possibly medication-related) a. Background intact colonic mucosa is normal b. Negative for viral inclusions and parasites c. Negative for neoplasia 2. See comment G: COLON, TRANSVERSE, POLYP: 1. Sessile serrated adenoma 2. Negative for overt dysplasia 3. Per the colonoscopy report: a. Polyp size: 2 mm b. Resection: Complete c. Retrieval: Complete COMMENTS B. The likely etiology is an ongoing non-inflammatory type mucosal injurydue to a chemical type of injury; this may be due to ingestion ofnon-steroidal anti-inflammatory drugs, aspirin (via prostaglandin-mediatedinjury), excess alcohol, corticosteroids, or bile/alkaline reflux, thelatter usually in the setting of a gastroenteric anastomosis. F. These findings in the context of a focal discrete lesion seen oncolonoscopy lead us to favor a medication-related injury. The differentialdiagnosis also includes Crohn's disease (although no specific Crohn'sfeatures are present) or changes secondary to bowel preparation; however,the distribution seen clinically seems to make both these conditionsunlikely. MICROSCOPIC A: Performed B: Performed C: Performed D: Performed E: Performed F: Performed G: Performed Electronically signed by: Ramsey Caraballo MD Orders Instruction(s)/Education: Instruction/Education Timeframe Assessment Colon Cancer Prevention K63.5 Colon Polyps K63.5 High Fiber Diet K63.5 Follow-up visit/Referral: Order Comments follow-up visit with Felipa Spencer MD Final Plan: Return for a colonoscopy in 5 years. We will attempt to contact you at appropriate intervals via U.S. mail. Wemay not be able to find you or contact you at that time, therefore youshould know that the responsibility for following our recommendation restswith you. If you don't hear from us at the time your procedure is due,please contact our office to schedule an appointment. If your contactinformation should change, please contact our office so that we can updateyour record. Additional Comments: Please follow up with Dr. Spencer as needed / scheduled. _Electronically signed by: Fabriec Hartman MD 11/20/2018 cc: Elsi Chakraborty DO cc: Elsi Chakraborty DO Fabrice Hartman MD OTHER from Last 3 Months or Most Recently Relevant to Health Maintenance Advance Directives * Full Code (Latest Code Status on File) Date Activated Date Inactivated Comments 11/22/2022 7:31 AM 11/22/2022 11:30 AM Question Answer Comments Code Status Discussion: Reviewed Preferences * Full Code Date Activated Date Inactivated Comments 12/16/2013 11:01 AM 12/16/2013 9:31 PM Care Teams Senior Net Developer Relationship Specialty Start Date End Date Elsi Chakraborty DO [address] [facility] [place] [id number] PCP - General Internal Medicine 01/17/18
--- OUTSIDE RECORDS SUMMARY | 2023-12-29 17:31 | XMS_ITS | Continuity of Care Document ---
Author Organization [facility] Address [address] [address] [place] [address] Phone Care Team Providers Care Community Planner Name Role Phone Lana Baez MD Unavailable Unavailable Allergies, Adverse Reactions, Alerts Substance Reaction Status Criticality DESVENLAFAXINE SUCCINATE Adverse reaction Active No Information escitalopram Active No Information benzalkonium chloride Rash Active No Inf ormation atomoxetine Active No Information neomycin EdemaErythema Active No Information fluticasone Headache Active No Information clarithromycin HivesHives Active No Informatio n amoxicillin RashDifficulty breathing Active No Information Medications Medication Instructions Dosage Effective Dates (start - stop) Status Comments Vitamin D3 4,000 unit capsule take 1 by Oral route every day - Active Pulmicort 1 mg/2 mL suspension for nebulization inhale 2 milliliter by nebulization route every day 1 MG - Active albuterol sulfate HFA 90 mcg/actuation aerosol inhaler inhale 2 puff by inhalation route every 4 - 6 hours as needed 180 MCG - Active Ativan 0.5 mg tablet take 1/2 - 1 tablet by oral route as needed - Active Vitron-C 65 mg iron-125 mg tablet,delayed release take 1 by oral route every day 1 - Active Colace 100 mg capsule take 1 capsule by oral route every day as needed 100 MG - Active Zyrtec 10 mg tablet take 1 tablet by ora l route every day 10 MG - Active Procedures Procedure Date Breath Test Glucose Offic/outpt E&m Estab Low-mod 0 Routine Serum Collection Hepatic Function Panel Lipase Colonoscopy Flex; W/bx /mx Ugi Endo; W/bx 1/mx Level Iv-surg Path Gross/micro 19 Office Cons New/estab Mod Advance Directives Directive Yes / No Effective Date File Name No Information Encounters Encounter Description Practice Location Reason(s) For Visit Diagnoses Date Provider Providers Copied on Encounter [facility], [address] [address], [place], [place], [id number], [place] tel:[phone] [facility] No Information 1 Sasha Schwartz. [address] [facility], [facility] [address], [place], [place], [id number], [place]. tel:[phone] [facility], [address] [address], [place], [place], [id number], [place] tel:[phone] [facility] Abdominal distension (gaseous) 0 Sasha Schwartz. [address] [facility], [facility] [address], [place], [place], [id number], [place]. tel:[phone] Referring Provider: Lana Baez MD, [address] [facility] [address], [place], [address] . tel:[phone] Offic/outpt E&m Estab Low-mod [facility], [address] [address], [place], [place], [id number], [place] tel:[phone] [facility] GI Symptoms or Concerns (chief complaint) BloatingWater retentionChang e in bowel habitNauseaDie tary counseling and surveillanceEl evated blood-pressure reading, w/o diagnosis of htn 0 Sasha Schwartz. [address] [facility], [facility] [address], [place], [place], [id number], [place]. tel:[phone] Referring Provider: Elsi Chakraborty DO, [address] [place] [address] [place], [address]. tel:[phone] [facility], [address] [address], [place], [id number], [place] tel:[phone] [facility] No Information 0 Marin Reynoso. [address] [facility], [facility] [address], [place], [place], [address], [place]. tel:[phone] [facility], [address] [address], [place], [id number], [place] tel:[phone] [facility] NauseaHeartbur nBloatingChang e in bowel habitColorecta l polyp detected on colonoscopyUlc er of intestineBenig n neoplasm of transverse colonDisease of stomach and duodenum, unspecified 9 No Information Referring Provider: Elsi Chakraborty DO, [address] [place], [address]. tel:[phone] Office Cons New/estab Mod [facility], [address] [address], [place], [id number], [place] tel:[phone] [facility] GI Symptoms or Concerns (chief complaint) Abdominal bloatingConsti pation, unspecified constipation typeVitamin D deficiencyRect al bleedingHeartb urnFamily history of eosinophilic esophagitisSea marissa allergiesNause aLow ferritinDietar y counseling and surveillanceEl evated blood-pressure reading, w/o diagnosis of htn 9 Tj Leo. [address] [facility], [facility] [address], [place], [place], [address], [place]. tel:[phone] Referring Provider: Elsi Chakraborty DO, [address] [place], [address]. tel:[phone] Family History Family Member Type Diagnosis Age At Onset Son Problem (finding) Alive and well Son Problem (finding) Eosinophilic esophagiti s Father Problem (finding) gallbladder disease Father Problem (finding) Colon polyps Mother Problem (finding) Colon polyps Mother Problem (finding) Cirrhosis Mother Problem (finding) gallbladder disease Immunizations Vaccine Date Status Comments tetanus toxoid, reduced diphtheria toxoid, and acellular pertussis vaccine, adsorbed administered Note: [facility] bi-direct ional interface ; Source: Other Registry Payers Payer name Insurance type Covered libertarian ID Authorjhonny smith(s) No Information Social History Type Description Quantity Date Captured Comments Alcohol Use Details Unknown Caffeine Use Details Unknown Tobacco Use Status No Information Smoking Status No Information Sex Female Chief Complaint And Reason For Visit No Information Reason For Referral Reason For Referral No Information Plan Of Treatment Date Type Action Status Goal Lifestyle education regardin g diet completed Goal Lifestyle education regardin g diet completed Referral Ordered: Breath Test Glucose Appointment date/timeframe: -today ordered Referral Ordered: follow-up visit with Felipa Spencer MD ordered Referral Ordered: Colonoscopy Appointment date/timeframe: -today ordered Referral Ordered: EGD Appointment date/timeframe: -today ordered History Of Present Illness Encounter Date Complaint History Of Prese nt Illness GI Symptoms or Concerns The suly ent is a very pleasant 48-year-old woman who presents to GI clinic today for followup of symptoms including abdominal bloating, low ferritin, fluid retention in her face and legs as well as a feeling of fullness in her abdomen.Patient has a past medical history significant for anxiety, asthma, and seasonal allergies, and she was seen in GI clinic almost a year ago with one of my colleagues, Felipa Spencer.At that time, she had very similar symptoms. EGD and colonoscopy were recommended, which she underwent in November 2018. She had a small ulceration in her transverse colon, but colon biopsies were normal and it was thought the ulceration could be prep or medication related. Biopsies of her duodenum were negative, and her upper endoscopy was unremarkable.Patient states she felt wonderfully after her colonoscopy. For several days, she did not have any trouble with bloating. Her abdomen felt well, and she was eating well. She states she tries to eat as healthy as s GI Symptoms or Concerns Subhash Perez is a 47-year-old woman with a history of anxiety, asthma, multiple seasonal allergies, whom I am seeing in consultation at the request of Dr. Elsi Chakraborty for a variety of GI issues including constipation, rectal bleeding, heartburn, occasional nausea, food intolerances.A to the patient, a few years ago, she started having left lower quadrant pain, bloating, constipation. She ended up seeing her roll winder and had her left ovary and fallopian tube removed, which improved the left lower quadrant pain. However, she continues to have issues with bloating and constipation. Currently, she is taking Colace once daily, which does improve bowel frequency. While on Colace, she will have once daily bowel movements, otherwise if she does not take anything, she will not go for 4 to 5 days. However, she does not think that increasing stool frequency has helped with her bloating or other symptoms. On review of systems, she has a number of other symptoms including gen Functional Status Date Functional Assessmen t No Information Instructions Date Instruction Additional Infor charles 1. Check liver tests , albumin level2. Check fecal pancreatic elastase and fecal fat level for malabsorption3. Glucose breath test for bacterial overgrowth4. If all testing is negative (normal), we can see what endocrinology thinks, also consider gastric emptying study Related to Bloating Lifestyle education regarding di et Related to Dietary counseling and surveillance Colon Cancer Prevention Related to Colorectal polyp detected on colonoscopy Colon Polyps Related to Color ectal polyp detected on colonoscopy High Fiber Diet Related to Color ectal polyp detected on colonoscopy 1. EGD with mid and distal esophagus biopsies, gastric biopsies, duodenal biopsies.2. Colonoscopy with TI intubation. She will need double prep given her history of constipation.3. The patient can followup in 3 months if she still having symptoms. If all of the above are negative, could consider breath testing for small intestinal bacterial overgrowth. Fructose and lactose breath testing could also be considered, if the patient is not avoiding these things. She could also be tried on a stronger laxative to see if this would help her symptoms, such as daily, MiraLax though the patient is hesitant about using laxatives chronically for fear of anorexia/bulimia issues. She may also benefit from a supervisor power reactor appointment to help her reintroduce foods while avoiding known triggers. Related to Abdominal bloating Lifestyle education regarding di et Related to Dietary counseling and surveillance Assessments Type Assessment Date No Information Patient Care Teams Name Effective Dates (start - stop) Status Members No Information
[2023-12-29 17:32] VITALS: PULSE 69; O2SAT 99
--- OUTSIDE RECORDS SUMMARY | 2023-12-29 17:50 | XMS_ITS | Continuity of Care Document ---
Author Organization [facility] Address [address] [address] [place] [address] Phone Care Team Providers Care Motion Study Engineer Name Role Phone Lana Baez MD Unavailable [...] Diagnoses Date Provider Providers Copied on Encounter [facility], [address] [address], [place], [place], [id number], [place] tel:[phone] [facility] No Information 1 Sasha Schwartz. [address] [facility], [facility] [address], [place], [place], [id number], [place]. tel:[phone] [facility], [address] [address], [place], [place], [address], [place] tel:[phone] [facility] Abdominal distension (gaseous) 0 Sasha Schwartz. [address] [facility], [facility] [address], [place], [place], [address], [place]. tel:[phone] Referring Provider: Lana Baez MD, [address] [facility] [address], [place], [address] . tel:[phone] Offic/outpt E&m Estab Low-mod [facility], [address] [address], [place], [place], [id number], [place] tel:[phone] [facility] GI Symptoms or Concerns (chief complaint) BloatingWater retentionChang e in bowel habitNauseaDie tary counseling and surveillanceEl evated blood-pressure reading, w/o diagnosis of htn 0 Sasha Schwartz. [address] [facility], [facility] [address], [place], [place], [id number], [place]. tel:[phone] Referring Provider: Elsi Chakraborty DO, [address] [place] [address] [place], [address]. tel:[phone] [facility], [address] [address], [place], [id number], [place] tel:[phone] [facility] No Information 0 Marin Reynoso. [address] [facility], [facility] [address], [place], [place], [address], [place]. tel:[phone] [facility], [address] [address], [place], [id number], [place] tel:[phone] [facility] NauseaHeartbur nBloatingChang e in bowel habitColorecta l polyp detected on colonoscopyUlc er of intestineBenig n neoplasm of transverse colonDisease of stomach and duodenum, unspecified 9 No Information Referring Provider: Elsi Chakraborty DO, [address] [place], [address]. tel:[phone] Office Cons New/estab Mod [facility], [address] [address], [place], [id number], [place] tel:[phone] [facility] GI Symptoms or Concerns (chief complaint) Abdominal bloatingConsti pation, unspecified constipation typeVitamin D deficiencyRect al bleedingHeartb urnFamily history of eosinophilic esophagitisSea marissa allergiesNause aLow ferritinDietar y counseling and surveillanceEl evated blood-pressure reading, w/o diagnosis of htn 9 Tj Leo. [address] [facility], [facility] [address], [place], [place], [address], [place]. tel:[phone] Referring Provider: Elsi Chakraborty DO, [address] [place], [address]. tel:[phone] Family History Family Member Type Diagnosis Age [...] Registry Payers Payer name Insurance type Covered constitution party ID Authorjhonny smith(s) No Information Social History [...] bloating, constipation. 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 She may also benefit from a rubber down appointment to help her reintroduce foods while avoiding known triggers. Related to Abdominal bloating Lifestyle education regarding di et Related to Dietary counseling and surveillance Assessments Type Assessment Date No Information Patient Care Teams Name Effective Dates (start - stop) Status Members No Information
[2023-12-29] MEDS: DOXYCYCLINE HYCLATE 100 MG PO (17:56)
--- NOTE | 2023-12-29 17:58 | ED.NURSE ---
pt refused to pay for instymeds, pt. stated I have a Rx. card that completely covers my prescriptions. per MD pt was given a does 1st does of medication today and Rx. sent to the pharmacy to picker operator.
--- OUTSIDE RECORDS SUMMARY | 2024-01-09 12:58 | XMS_ITS | Clinical Summary ---
Author Organization [facility] [facility] Address [place], [place] [address] Care Team Providers Care Supervisor Shuttle Preparation Name Role Phone Elsi Chakraborty Primary Care Provider [phone] Allergies Active Allergy Reactions Criticality Noted Date [...] Rash Medium 06/14/2021 Neomycin Edema,Erythema High 03/23/2021 Izeucleb-Esvbwcrqek-Wtuzz yxin Edema,Erythema High 01/02/2014 Unlisted Allergen (Include [...] Team Description 01/07/2024 8:00 AM CDT Telemedicine [facility] [address] [place] [address] Usha Live NP Telehealth; Medication Management (Things are fine/Couldn't take the buspar-gave her chest pain, hard to breath, tightness/Wants to discuss sleeping issue, not sleeping well since Jul) 01/07/2024 Travel 01/04/2024 4:00 PM CDT Office Visit [address] [place] [address] Elsi Chakraborty DO Mental Health Intake 01/04/2024 Travel 12/28/2023 4:00 PM CDT Telemedicine [address] [place] [address] Elsi Chakraborty DO Mental Health Intake; Sleep Problem 12/26/[address] [place] [address] Elsi Chakraborty DO Refill Request (Epinephrine) 12/20/2023 Orders Only [facility] Scanner 1 scan: (1-Ord) WILTON, MULTIPLE PROCEDURES, 12/20/2023 12/20/2023 Lab Requisition [facility] [phone] Romina Bassett MD 12/19/[address] [place] [address] Elsi Chakraborty DO Results (CT Scan) 12/18/2023 Nurse Triage [address] [place] [address] Elsi Chakraborty DO Questions (Question regarding CT scan from 12/14/2023 for Frances Bassett MD SPORTS ANCHOR ) 12/14/2023 3:40 PM CDT Office Visit [address] [place] [address] Elsi Chakraborty DO Mental Health Intake 12/14/2023 Orders Only [facility] Scanner 1 scan: (1-Ord) WILTON, ABDOMEN PELVIS, 12/14/2023 12/14/2023 Travel 12/07/2023 2:40 PM CDT Office Visit [address] [address] Elsi Chakraborty, Mental Health Intake 12/07/2023 Travel 12/05/2023 11:00 AM CDT Office Visit [address] [address] Jaqueline Shultz MD Neck Pain/problem (lymph node swelling) 12/05/2023 Travel 12/03/2023 Orders Only [facility] Scanner 1 scan: (1-Ord) [facility], 12/03/2023 11/30/2023 9:00 AM CDT Telemedicine [facility] [address] [place] [address] Usha Live NP Telehealth; Follow Up 11/29/2023 2:40 PM CDT Preop Visit [address] [place] [address] Elsi Chakraborty DO Preoperative Exam (Hysterectomy on 12/20/[address] Adhikari at [facility]) 11/29/2023 Travel 11/28/2023 Telephone [facility] [address] [place] [address] Usha Live NP Form (CSA) 11/26/2023 Telephone [facility] [address] [place] [address] Usha Live NP Appointment 11/21/2023 7:55 AM CDT Office Visit [address] [address] Ly Maciel NP Medication Management 11/21/2023 Travel 11/13/2023 11:18 AM CDT - 11/13/2023 3:46 PM CDT [facility] [address] [facility] [place] [address] Neal Rico MD Atypical chest pain (Primary Dx); Adverse effect of drug, initial encounter Discharge Disposition: Home Self Care 11/13/2023 Travel 11/13/2023 Nurse Triage [address] [address] Elsi Chakraborty DO Chest Pain 11/02/2023 3:40 PM CDT Office Visit [address] [address] Elsi Chakraborty DO Mental Health Intake 11/02/2023 Travel 10/27/2023 Travel 10/16/2023 Orders Only [address] [address] Elsi Chakraborty DO Screening (Colonoscopy order only) 10/12/2023 3:40 PM CDT Office Visit [address] [address] Elsi Chakrabotry DO Mental Health Intake 10/12/2023 Travel from [...] Description 01/11/2024 4:00 PM CDT Office Visit [address] [place] [phone] Elsi Chakraborty, [address] [place] [address] 01/18/2024 4:00 PM CDT Office Visit [address] [place] [address] Palmer Elsi Arroyo, DO [address] [place] [address], [place] [address] 01/24/2024 3:00 PM CDT Office Visit [address] [phone] Pascual Chakrabortybyron Arroyo, [address] [phone] 02/01/2024 4:00 PM CDT Office Visit [address] [phone] Pascual Chakrabortybyron Arroyo, [address] [address] 03/27/2024 11:00 AM CDT Office Visit [facility] [address] [place] [address] Nelda Medina, PACKAGE DELIVERY DRIVER [address] [place] [address] Health Maintenance Due Date Last Done Comments [...] Romina Bassett MD LAB BILL O [facility] [address] [place] [address], [place] * PATH TISSUE EXAM (12/20/2023 12:10 PM CDT) Case Report Pathology Report ?Case: [id number] ? Authorizing Provider: ??Romina Bassett ??Collected: ? 12/20/2023 1210 ? M, MD ? Ordering Location: ? [facility] ?Received: ?12/21/2023 0724 ? Pathologist: ? Vi Hook MD ? Specimen: ?Uterus, and right fallopian tube ? 12/25/2023 11:08 AM CDT [facility] Final Diagnosis A) UTERUS WITH CERVIX AND RIGHT FALLOPIAN TUBE, TOTAL HYSTERECTOMY WITH SALPINGECTOMY: 1. Cervix: Small benign endocervical polyps 2. Endometrium: Weak secretory changes with breakdown 3. Myometrium: Nine intramural leiomyomata, 0.4-4.2 cm 4. Uterine serosa: No diagnostic abnormality 5. Right fallopian tube: No abnormality 6. Uterine weight: 238 grams 7. Negative for malignancy 12/25/2023 11:08 AM CDT [facility] Clinical Information Abnormal uterine bleeding 12/25/2023 11:08 AM CDT [facility] Gross Description A) Received [...] has a stellate lumen and unremarkable mucosa. Us Marketing Director sections and entire fimbria are submitted: 1. Anterior cervix 2. Posterior cervix with polyp 3. ??Anterior cervical polyp 4. ??Anterior uterine wall, full-thickness 5. Posterior uterine wall, full-thickness 6-10. ??Intramural nodules 11. ??Right fallopian tube and entire fimbria Time and date in formalin: 1218 on 12/20/2023 TRS 12/21/2023 12/25/2023 11:08 AM CDT [facility] Microscopic Description The final diagnosis is based on microscopic examination of appropriate sections of all specimens. The intramural leiomyomata display patchy perinodular hydropic change and focal bizarre nuclei. ??No abnormal mitotic activity or necrosis is seen. 12/25/2023 11:08 AM CDT [facility] Additional Information Interpreted at [facility] - [address] [facility] [address], [place] [address] 12/25/2023 11:08 AM CDT [facility] Other SPECIMEN FROM UTERUS / Unknown 12/20/2023 12:10 PM CDT 12/21/2023 7:24 AM CDT Romina Bassett MD PATHOLOGY/ CYTOLOGY Performing Organization Address City/State/[facility] Co de Phone Number [facility] [address] [place] [address], * SCAN-OPERATIVE/PROCEDURE REPORT (12/20/2023 12:00 AM CDT) [...] 11.0 thou/cu mm 11/29/2023 4:21 PM CDT [facility] RED BLOOD COUNT 4.63 4.00 - 5.20 mil/cu mm 11/29/2023 4:21 PM CDT [facility] HEMOGLOBIN 13.6 12.0 - 16.0 g/dL 11/29/2023 4:21 PM [facility] HEMATOCRIT 41.9 33.0 - 51.0 % 11/29/2023 4:21 PM [facility] MCV 91 80 - 100 fL 11/29/2023 4:21 PM [facility] MCH 29.4 26.0 - 34.0 pg 11/29/2023 4:21 PM [facility] MCHC 32.5 32.0 - 36.0 g/dL 11/29/2023 4:21 PM [facility] RDW 13.5 11.5 - 15.5 % 11/29/2023 4:21 PM [facility] PLATELET COUNT 358 140 - 440 thou/cu mm 11/29/2023 4:21 PM [facility] MPV 9.5 6.5 - 11.0 fL 11/29/2023 4:21 PM [facility] % NEUT 71.0 % 11/29/2023 4:21 PM [facility] % LYMPH 16.8 % 11/29/2023 4:21 PM [facility] % MONO 8.6 % 11/29/2023 4:21 PM [facility] % EOS 3.4 % 11/29/2023 4:21 PM [facility] % BASO 0.2 % 11/29/2023 4:21 PM [facility] ABSOLUTE NEUTROPHILS 7.2(H) 1.7 - 7.0 thou/cu mm 11/29/2023 4:21 PM [facility] ABSOLUTE LYMPHOCYTES 1.7 0.9 - 2.9 thou/cu mm 11/29/2023 4:21 PM [facility] ABSOLUTE MONOCYTES 0.9(H) <0.9 thou/cu mm 11/29/2023 4:21 PM [facility] ABSOLUTE EOSINOPHILS 0.3 <0.5 thou/cu mm 11/29/2023 4:21 PM [facility] ABSOLUTE BASOPHILS 0.0 <0.3 thou/cu mm 11/29/2023 4:21 PM [facility] Blood BLOOD SPECIMEN / Unknown Venipuncture / Unknown 11/29/2023 4:08 PM CDT 11/29/2023 4:08 PM CDT Elsi Arroyo Palmer HEMATOLOGY [facility] [address] [place] [address] * (ABNORMAL) COMP METABOLIC PANEL (11/29/2023 4:08 PM CDT) SODIUM 140 136 - 145 mmol/L 11/29/2023 4:40 PM [facility] POTASSIUM 3.7 3.5 - 5.1 mmol/L 11/29/2023 4:40 PM [facility] CHLORIDE 102 98 - 107 mmol/L 11/29/2023 4:40 PM [facility] CO2,TOTAL 27 22 - 29 mmol/L 11/29/2023 4:40 PM [facility] ANION GAP 11 5 - 18 11/29/2023 4:40 PM [facility] GLUCOSE 96 70 - 99 mg/dL 11/29/2023 4:40 PM [facility] CALCIUM 10.4(H) 8.6 - 10.0 mg/dL 11/29/2023 4:40 PM [facility] BUN 14 6 - 20 mg/dL 11/29/2023 4:40 PM [facility] CREATININE 0.79 0.50 - 0.90 mg/dL 11/29/2023 4:40 PM [facility] BUN/CREAT RATIO 18 10 - 20 4:40 PM [facility] eGFR >90 >90 mL/min/1.7 3m2 11/29/2023 4:40 PM [facility] Comment:As of 2021, eG FR is calculated by the CKD-EPI creatinine equation without race adjustment. ??eGFR can be influenced by muscle mass, exercise, and diet. ??The reported eGFR is an estimation only and is only applicable if the renal function is stable. ALBUMIN 4.6 4.0 - 4.9 g/dL 11/29/2023 4:40 PM CDT [facility] PROTEIN,TOTAL 7.9 6.0 - 8.0 g/dL 11/29/2023 4:40 PM CDT [facility] BILIRUBIN,TOTAL 0.2 0.0 - 1.2 mg/dL 11/29/2023 4:40 PM CDT [facility] ALK PHOSPHATASE 93 35 - 104 IU/L 11/29/2023 4:40 PM T [facility] ALT (SGPT) 9(L) 10 - 35 IU/L 11/29/2023 4:40 PM CDT [facility] AST (SGOT) 21 10 - 35 IU/L 11/29/2023 4:40 PM CDT [facility] Blood BLOOD SPECIMEN / Unknown Venipuncture / Unknown 11/29/2023 4:08 PM CDT 11/29/2023 4:08 PM CDT Elsi Chakraborty DO CHEMISTRY Performing Organization Address City/[facility]/ZIP Co de Phone Number [facility] [address] [place] [address] * TROPONIN T (HS) ONE TIME (11/13/2023 2:13 PM CDT) TROPONIN T HS 8 6-10 ng/L ng/L 11/13/2023 3:05 PM CDT [facility] Blood BLOOD SPECIMEN / Unknown Venipuncture / Unknown 11/13/2023 2:13 PM CDT 11/13/2023 2:17 PM CDT Neal Rico MD CHEMISTRY Performing Organization Address City/[facility]/ZIP Co de Phone Number [facility] [address] [place] [address] * XR CHEST 2 VIEWS PA AND [...] - 145 mmol/L 11/13/2023 12:28 PM CDT [facility] POTASSIUM, POCT 3.7 3.5 - 5.0 mmol/L 11/13/2023 12:28 PM [facility] CHLORIDE, POCT 104 98 - 107 mmol/L 11/13/2023 12:28 PM [facility] CO2,TOTAL, POCT 27 21 - 31 mmol/L 11/13/2023 12:28 PM [facility] ANION GAP, POCT 13 5 - 18 12:28 PM [facility] GLUCOSE, POCT 100(H) 70 - 99 mg/dL 11/13/2023 12:28 PM [facility] IONIZED CALCIUM, POCT 1.19 1.15 - 1.27 mmol/L 11/13/2023 12:28 PM [facility] BUN, POCT 14 8 - 25 mg/dL 11/13/2023 12:28 PM [facility] CREATININE, POCT 0.80 0.57 - 1.11 mg/dL 11/13/2023 12:28 PM [facility] Comment:Caution: Patients ta blas Hydroxyurea have falsely increased iStat Creatinine results. Verify creatinine results ordering a Creatinine (87839.2) BUN/CREAT RATIO, POCT 18 10 - 20 11/13/2023 12:28 PM [facility] eGFR 90(L) >90 mL/min/1.7 3m2 11/13/2023 12:28 PM [facility] Comment:As of 2021, eG FR is calculated by the CKD-EPI creatinine equation without race adjustment. eGFR can be influenced by muscle mass, exercise, and diet. The reported eGFR is an estimation only and is only applicable if the renal function is stable. Blood BLOOD SPECIMEN / Unknown 11/13/2023 12:24 PM CDT 11/13/2023 12:28 PM CDT Neal Rico MD CHEMISTRY [facility] [address] [place] [address] * TROPONIN I QUAL POC (11/13/2023 12:21 PM CDT) TROPONIN I,QUAL,POC Negative Negative 11/13/2023 12:35 PM CDT [facility] TROPONIN I,QUAL, POCT <0.03 <0.03 11/13/2023 12:35 PM CDT [facility] Blood BLOOD SPECIMEN / Unknown 11/13/2023 12:21 PM CDT 11/13/2023 12:35 PM CDT Neal Rico MD CHEMISTRY [facility] [address] [place] [address] * TROPONIN T (HS) ACUTE W/2HR REFLEX (11/13/2023 12:13 PM CDT) Pathologist [facility] TROPONIN T HS 8 6-10 ng/L ng/L 11/13/2023 1:[address] [facility] Blood BLOOD SPECIMEN / Unknown Venipuncture / Unknown 11/13/2023 12:13 PM CDT 11/13/2023 12:17 PM CDT [facility] - 11/13/2023 1:59 PM CDT hs-cTnT (Elecsys [...] Neal Rico MD CHEMISTRY Performing Organization Address City/State/[facility] Co de Phone Number [facility] [address] [address] * CBC W PLT NO DIFF (11/13/2023 12:13 PM CDT) WHITE BLOOD COUNT 9.0 4.5 - 11.0 thou/cu mm 11/13/2023 12:21 PM [facility] RED BLOOD COUNT 4.63 4.00 - 5.20 mil/cu mm 11/13/2023 12:21 PM T [facility] HEMOGLOBIN 13.8 12.0 - 16.0 g/dL 11/13/2023 12:21 PM CDT [facility] HEMATOCRIT 41.5 33.0 - 51.0 % 11/13/2023 12:21 PM [facility] MCV 90 80 - 100 fL 11/13/2023 12:21 PM CDT [facility] MCH 29.8 26.0 - 34.0 pg 11/13/2023 12:21 PM [facility] MCHC 33.3 32.0 - 36.0 g/dL 11/13/2023 12:21 PM [facility] RDW 14.0 11.5 - 15.5 % 11/13/2023 12:21 PM CDT [facility] PLATELET COUNT 335 140 - 440 thou/cu mm 11/13/2023 12:21 PM CDT [facility] MPV 9.5 6.5 - 11.0 fL 11/13/2023 12:21 PM CDT [facility] Blood BLOOD SPECIMEN / Unknown Venipuncture / Unknown 11/13/2023 12:13 PM CDT 11/13/2023 12:17 PM CDT Neal Rico MD HEMATOLOGY Performing Organization Address City/[facility]/ZIP Co de Phone Number [facility] [address] [place] [address] * EKG 12 LEAD (11/13/2023 12:09 PM [...] NOW QTc 421 ms BEYOND NOW P Griffin 64 degrees BEYOND NOW R Griffin 47 degrees BEYOND NOW T Griffin 30 degrees BEYOND NOW 11/13/2023 12:0 9 PM CDT 11/13/2023 12:16 PM CDT Neal Rico MD EKG ORD Performing Organization Address City/[facility] Co de Phone Number [facility] [place], [place] * XR MAMMO EDWARD BILAT SCREEN [...] care provider. XR MAMMO EDWARD BILAT SCREEN [[id number]] CLINICAL HISTORY: ??This is an asymptomatic 50 [...] 16 Negative Negative 01/17/2023 2:55 PM CDT [facility] TYPE 18 Negative Negative 01/17/2023 2:55 PM CDT [facility] OTHER HIGH RISK TYPES Negative Negative 01/17/2023 2:55 PM CDT [facility] Other (Cervical/Vagina l) Non-Blood / Unknown 01/12/2023 4:00 PM CDT 01/15/2023 1:43 PM CDT Narrative [facility] - 01/17/2023 2:55 PM CDT HPV types 16, 18, 31, 33, 35, 39, 45, 51, 52, 56, 58, 59, 66 and 68 DNA were undetectable or below the pre-set threshold. Methodology: Trisha Jaclyn 4800 HPV Test Elsi Chakraborty DO MICROBIOLOGY [facility] [address] [place] [address], [place] * (ABNORMAL) LIPID PANEL W REFLEX MEASURED LDL (01/17/2022 10:00 AM CDT) CHOLESTEROL,TOTAL 224(H) 100 - 199 mg/dL 01/17/2022 10:29 PM CDT [facility] TRIGLYCERIDES 109 <150 mg/dL 01/17/2022 10:29 PM CDT [facility] HDL CHOLESTEROL 42 >40 mg/dL 10:29 PM CDT [facility] NON-HDL CHOLESTEROL 182(H) <145 mg/dl 01/17/2022 10:29 PM CDT [facility] CHOL/HDL RATIO 5.33(H) <4.50 01/17/2022 10:29 PM CDT [facility] LDL CHOLESTEROL 160(H) <=130 mg/dL 01/17/2022 10:29 PM CDT [facility] VLDL CHOLESTEROL 22 <=30 mg/dL 01/17/2022 10:29 PM CDT [facility] PROVIDER ORDERED STATUS RANDOM 01/17/2022 10:29 PM CDT [facility] Blood BLOOD SPECIMEN / Unknown Venipuncture / Unknown 01/17/2022 10:00 AM CDT 01/17/2022 10:03 AM CDT Elsi Chakraborty DO CHEMISTRY [facility] [address] [place] [address], [facility] [address] [place] [address] * ANTI HCV (01/17/2022 10:00 AM CDT) HEPATITIS C ANTIBODY Non-React orly Non-React orly 01/17/2022 9:11 PM CDT [facility] Comment:Antibodies to HCV no t detected; does not exclude the possibility of exposure to HCV. Blood BLOOD SPECIMEN / Unknown Venipuncture / Unknown 01/17/2022 10:00 AM CDT 01/17/2022 10:03 AM CDT Elsi Chakraborty DO SEND OUTS [facility] [address] [place] [address], [place] * SCAN-COLONOSCOPY (11/20/2018 3:00 PM CDT) Narrative Procedure Note Fabrice Hartman MD - 11/20/2018 2:07 PM CDT [facility] [address], [address], [place] [address] Patient Name: Subhash Perez Gender: Female Exam Date: 11/20/2018 Visit Number: [id number] Age: 47 Years Date of : 1970 Attending MD: Fabrice Hartman MD Medical Record#: [id number] Procedure: Colonoscopy Indications: Change in bowel habits [...] 11:01 AM 12/16/2013 9:31 PM Care Teams Supervisor Shuttle Preparation Relationship Specialty Start Date End Date Elsi Chakraborty DO [address] [place] [address] [place] [address] PCP - General Internal Medicine 01/17/18
--- OUTSIDE RECORDS SUMMARY | 2024-01-09 12:58 | XMS_ITS | Clinical Summary ---
Author Organization [facility] Address [address], [place] [address] Care Team Providers Care Helper Teacher Name Role Phone Ishaan Lomas DO Primary Care Provider [phone] Source Comments You are receiving this document as you are listed as the primary care provider,follow-up provider, or the patient has been referred to you for consultation.This is in compliance with the Medicare andPrem[facility] Centercaid EHR Incentive Program,which states Providers who transition their patient to another setting of careor provider of care or refers their patient to another provider of care shouldprovide summary care record for each transition of care or referral. [facility] Allergies Active Allergy Reactions Criticality Noted Date [...] 0 11/15/2018 Ac tive Cholecalciferol (VITAMIN D3) 33836 units CAPS TK 1 C PO ONCE [...] - 199 mg/dL 12/17/2018 4:47 PM CDT [facility] Triglyceride 103 <=149 mg/dL 12/17/2018 4:47 PM CDT [facility] HDL Cholesterol 43 >=40 mg/dL 9 4:47 PM CDT [facility] LDL, Calculated 138(H) <130 mg/dL 9 4:47 PM CDT [facility] Non HDL Chol, Calculated 159 <=159 mg/dL 12/17/2018 4:47 PM CDT [facility] Cholesterol/HDL Ratio 4.7 12/17/2018 4:47 PM CDT [facility] Hours Fasting 0 12/17/2018 4:47 PM CDT [facility] Blood Venipuncture / Unknown 12/17/2018 2:06 PM CDT 12/17/2018 3:50 PM CDT Neeru Dubon PA-C LAB_1 [facility] [address] [place] [address], [facility] from Last 3 Months or Most Recently Relevant to Health Maintenance Care Teams Helper Teacher Relationship Specialty Start Date End Date Ishaan Lomas DO [address] [facility] [place] [address] PCP - General 10/29/15
== END 2023-12-29 17:40 | disposition home or self-care (01) ==
PROVIDERS: Emergency Provider Emergency Medicine Emergency Medical Services; PCP Internal Medicine
DX: L03.311 Cellulitis of abdominal wall (principal)
CPT/HCPCS: 99283; 99284; A9270

== ENCOUNTER 2024-01-03 10:09 | Outpatient (CLI) | payer BC, SELFPAY | END 2024-01-03 10:10 | disposition home or self-care (01) | LOC: NFLDREF 10:10 | PROVIDERS: PCP Internal Medicine; Visit Provider Obstetrics & Gynecology | DX: L03.90 Cellulitis, unspecified (principal); N89.8 Other specified noninflammatory disorders of vagina | CPT/HCPCS: 87070; 87086; 87186; 87205 ==

== ENCOUNTER 2024-01-07 15:05 | Outpatient (CLI) | payer BC, SELFPAY ==
--- OUTSIDE RECORDS SUMMARY | 2024-01-07 15:11 | XMS_ITS | Clinical Summary ---
Author Organization [facility] Address [address], [place] [address] Care Team Providers Care Furniture Designer Name Role Phone Ishaan Lomas DO Primary Care Provider [phone] Source Comments You are receiving this document as you are listed as the primary care provider,follow-up provider, or the patient has been referred to you for consultation.This is in compliance with the Medicare and[facility] Hospitalca[facility] EHR Incentive Program,which states Providers who transition their patient to another setting of careor provider of care or refers their patient to another provider of care shouldprovide summary care record for each transition of care or referral. [facility] Allergies Active Allergy Reactions Criticality Noted Date [...] 0 11/15/2018 Ac tive Cholecalciferol (VITAMIN D3) 47411 units CAPS TK 1 C PO ONCE [...] - 199 mg/dL 12/17/2018 4:47 PM CDT [facility] Triglyceride 103 <=149 mg/dL 12/17/2018 4:47 PM CDT [facility] HDL Cholesterol 43 >=40 mg/dL 9 4:47 PM CDT [facility] LDL, Calculated 138(H) <130 mg/dL 9 4:47 PM CDT [facility] Non HDL Chol, Calculated 159 <=159 mg/dL 12/17/2018 4:47 PM CDT [facility] Cholesterol/HDL Ratio 4.7 12/17/2018 4:47 PM CDT [facility] Hours Fasting 0 12/17/2018 4:47 PM CDT [facility] Blood Venipuncture / Unknown 12/17/2018 2:06 PM CDT 12/17/2018 3:50 PM CDT Neeru Dubon PA-C LAB_[facility] [address] [place] [address], [facility] from Last 3 Months or Most Recently Relevant to Health Maintenance Care Teams Furniture Designer Relationship Specialty Start Date End Date Ishaan Lomas DO [address] [facility] [place] [address] PCP - General 10/29/15
--- OUTSIDE RECORDS SUMMARY | 2024-01-07 15:12 | XMS_ITS | Clinical Summary ---
Author Organization [facility] Address [place], [place] [address] Care Team Providers Care Scrap Dealer Name Role Phone Elsi Chakraborty Primary Care [...] Rash Medium 06/14/2021 Neomycin Edema,Erythema High 03/23/2021 Osmkvvoa-Nfmvkuumqb-Vqjgg yxin Edema,Erythema High 01/02/2014 Unlisted Allergen (Include [...] Allergic Reaction. 2 Each 3 12/14/2023 Active polyethylene glycol 3350 (MIRALAX ORAL) Take by mouth. Active LORazepam (Ativan) 0.5 mg tabIndications:An xiety state Take 1 Tablet (0.5 mg) by mouth every 6 hours if needed for Anxiety or Sleep. 30 Tablet 2 01/06/2024 Active clindamycin (CLEOCIN) 300 mg capsule Take 300 mg by mouth three times daily. TID for 7 days Active nitrofurantoin macrocrystals/mon ohydrate (MACROBID) 100 mg capsule Take 100 mg by mouth every 12 hours. 01/05/2024 Active LORazepam (Ativan) 0.5 mg tabIndications:An xiety state Take 1 Tablet (0.5 mg) by mouth every 6 hours if needed for Anxiety. 30 Tablet 1 10/12/2023 4 Discontinue d(Reorder (E-cancel not sent)) oxyCODONE (ROXICODONE) 5 mg immediate release tablet Take 5 mg by mouth. 12/21/2023 4 Discontinue d(*Med complete/Re gimen complete/Le zane of care change) Active Problems Problem Noted Date Diagnosed Date Bee sting allergy 12/14/2023 Uterine leiomyoma 12/14/2023 Pap smear for cervical cancer screening 01/10/20 Overview: 01/2023 UNS/HPV negative. Plan: Pap/HPV due [...] Encounters Date Type Department Care Team Description 01/07/2024 8:00 AM CDT Telemedicine [facility] [address] [place] [address] Usha Live NP Telehealth; Medication Management (Things are fine/Couldn't take the buspar-gave her chest pain, hard to breath, tightness/Wants to discuss sleeping issue, not sleeping well since Jul) 01/07/2024 Travel 01/04/2024 4:00 PM CDT Office Visit [address] [place] [address] Elsi Chakraborty DO Mental Health Intake 01/04/2024 Travel 12/28/2023 4:00 PM CDT Telemedicine [address] [place] [address] Elsi Chakraborty DO Mental Health Intake; Sleep Problem 12/26/[address] [place] [address] Elsi Chakraborty DO Refill Request (Epinephrine) 12/20/2023 Orders Only [facility] Scanner 1 scan: (1-Ord) WILTON, MULTIPLE PROCEDURES, 12/20/2023 12/20/2023 Lab Requisition [facility] [phone] Romina Bassett MD 12/19/[address] [place] [address] Elsi Chakraborty DO Results (CT Scan) 12/18/2023 Nurse Triage [address] [place] [address] Elsi Chakraborty DO Questions (Question regarding CT scan from 12/14/2023 for Frances Bassett MD RETAIL GROCER ) 12/14/2023 3:40 PM CDT Office Visit [address] [place] [address] Elsi Chakraborty DO Mental Health Intake 12/14/2023 Orders Only [facility] Scanner 1 scan: (1-Ord) WILTON, ABDOMEN PELVIS, 12/14/2023 12/14/2023 Travel 12/07/2023 2:40 PM CDT Office Visit [address] [phone] Elsi Chakraborty, Mental Health Intake 12/07/2023 Travel 12/05/2023 11:00 AM CDT Office Visit [address] [phone] Jaqueline Shultz MD Neck Pain/problem (lymph node swelling) 12/05/2023 Travel 12/03/2023 Orders Only [facility] Scanner 1 scan: (1-Ord) [facility], 12/03/2023 11/30/2023 9:00 AM CDT Telemedicine [facility] [address] [place] [address] Usha Live NP Telehealth; Follow Up 11/29/2023 2:40 PM CDT Preop Visit [address] [place] [address] Elsi Chakraborty DO Preoperative Exam (Hysterectomy on 12/20/[address] Adhikari at [facility]) 11/29/2023 Travel 11/28/2023 Telephone [facility] [address] [place] [address] Usha Live NP Form (CSA) 11/26/2023 Telephone [facility] [address] [place] [address] Usha Live NP Appointment 11/21/2023 7:55 AM CDT Office Visit [address] [phone] Ly Maciel NP Medication Management 11/21/2023 Travel 11/13/2023 11:18 AM CDT - 11/13/2023 3:46 PM CDT Emergency [facility] [address] [place] [address] Neal Rico MD Atypical chest pain (Primary Dx); Adverse effect of drug, initial encounter Discharge Disposition: Home Self Care 11/13/2023 Travel 11/13/2023 Nurse Triage [address] [phone] Elsi Chakraborty DO Chest Pain 11/02/2023 3:40 PM CDT Office Visit [address] [phone] Elsi Chakraborty DO Mental Health Intake 11/02/2023 Travel 10/27/2023 Travel 10/16/2023 Orders Only [address] [phone] Elsi Chakraborty DO Screening (Colonoscopy order only) 10/12/2023 3:40 PM CDT Office Visit [address] [phone] Elsi Chakraborty DO Mental Health Intake 10/12/2023 Travel from [...] Answer Date Recorded PHQ-2 TOTAL SCORE 4 01/07/2024 Social Connections Answer Date Recorded Frequency of [...] Sign Reading Time Taken Comments Blood Pressure 138/88 01/04/2024 4:27 PM CDT Pulse 82 01/04/2024 4:27 PM CDT Temperature 37 ??C (98.6 ??F) 11/13/2023 11:34 AM CDT Respiratory Rate 16 01/04/2024 4:27 PM CDT Oxygen Saturation 97% 01/04/2024 4:27 PM CDT Inhaled Oxygen Concentration - - Weight 87.2 kg (192 lb 3.2 oz) 01/04/2024 4:27 P M CDT Height 162.6 cm (5' 4) 11/29/2023 2:58 PM CDT Body Mass Index 32.99 11/29/2023 2:58 PM CDT Plan of Treatment Upcoming Encounters Date Type Department Care Team (Late st Contact Info) Description 01/11/2024 4:00 PM CDT Office Visit [address] [place] [phone] Elsi Chakraborty, [address] [place] [address] 01/18/2024 4:00 PM CDT Office Visit [address] [place] [phone] Palmer Elsi Arroyo, DO [address] [place] [address], [place] [address] 01/24/2024 3:00 PM CDT Office Visit [address] [phone] Pascual Chakrabortybyron Arroyo, [address] [phone] 02/01/2024 4:00 PM CDT Office Visit [address] [phone] Pascual Chakrabortybyron Arroyo, [address] [address] 03/27/2024 11:00 AM CDT Office Visit [facility] [address] [place] [address] Nelda Medina, COST SPECIALIST [address] [place] [address] Health Maintenance Due Date Last Done Comments HIV for age 15-65 12/28/1987 Zoster (shingles) series for age 50+ (1 of 2) 2022 COVID-19 vaccine series (2022-24 season) 2023 Colonoscopy through age 75 11/21/2023 11/20/2018 Pap test for age 21-65 01/13/2024 3, 01/07/2020, 09/06/2015, Additional history exists Influenza for age 50-64 02/10/2024 Mammogram for age 45-75 09/03/2024 09/04/19 24, 03/30/2022, 01/11/2021, Additional history exists BMI (ht and wt on same day) for age 18+ 11/28/2024 11/29/2023, 08/24/2023, 07/30/2023, Additional history exists Depression screening for age 12+ 01/06/2025 01/07/2024, 11/30/2023, 11/21/2023, Additional history exists Lipids for age 45-75 [...] EXAM Routine 12/20/2023 12:1 0 PM CDT SCAN-OPERATIVE/PROCEDU RE REPORT 12/20/2023 12:00 AM CDT SCAN-CT INTERPRETATION 4 12:00 AM CDT SCAN-ULTRASOUND REPORT 12:00 AM CDT CBC WITH AUTO DIFFERENTIAL [...] CDT Romina Bassett MD LAB BILL O [facility] LAB[facility]ATORY [address] [place] [address], [place] * PATH TISSUE EXAM (12/20/2023 12:10 PM CDT) Case Report Pathology Report ?Case: [id number] ? Authorizing Provider: ??Romina Bassett ??Collected: ? 12/20/2023 1210 ? M, MD ? Ordering Location: ? [facility] ?Received: ?12/21/2023 0724 ? Pathologist: ? Vi Hook MD ? Specimen: ?Uterus, and right fallopian tube ? 12/25/2023 11:08 AM CDT [facility]OR[facility]-C ENTRAL LABORATORY Final Diagnosis A) UTERUS WITH CERVIX AND RIGHT FALLOPIAN TUBE, TOTAL HYSTERECTOMY WITH SALPINGECTOMY: 1. Cervix: Small benign endocervical polyps 2. Endometrium: Weak secretory changes with breakdown 3. Myometrium: Nine intramural leiomyomata, 0.4-4.2 cm 4. Uterine serosa: No diagnostic abnormality 5. Right fallopian tube: No abnormality 6. Uterine weight: 238 grams 7. Negative for malignancy 12/25/2023 11:08 AM CDT [facility]AL LABORATORY Clinical Information Abnormal uterine bleeding 12/25/2023 11:08 AM CDT [facility] Gross Description A) Received [...] has a stellate lumen and unremarkable mucosa. Electron Beam Photo Mask Technician sections and entire fimbria are submitted: 1. Anterior cervix 2. Posterior cervix with polyp 3. ??Anterior cervical polyp 4. ??Anterior uterine wall, full-thickness 5. Posterior uterine wall, full-thickness 6-10. ??Intramural nodules 11. ??Right fallopian tube and entire fimbria Time and date in formalin: 1218 on 12/20/2023 TRS 12/21/2023 12/25/2023 11:08 AM CDT [facility] Microscopic Description The final diagnosis is based on microscopic examination of appropriate sections of all specimens. The intramural leiomyomata display patchy perinodular hydropic change and focal bizarre nuclei. ??No abnormal mitotic activity or necrosis is seen. 12/25/2023 11:08 AM CDT [facility] Additional Information Interpreted at [facility] - [address] [facility] [address], [place] [address] 12/25/2023 11:08 AM CDT [facility] Other SPECIMEN FROM UTERUS / Unknown 12/20/2023 12:10 PM CDT 12/21/2023 7:24 AM CDT Romina Bassett MD PATHOLOGY/ CYTOLOGY Performing Organization Address City/State/[facility] Co de Phone Number [facility] [address] [place] [address], * SCAN-OPERATIVE/PROCEDURE REPORT (12/20/2023 12:00 AM CDT) Scanner OTHER * SCAN-CT INTERPRETATION (12/14/2023 12:00 AM CDT) Anatomical Region Laterality Modality Other Scanner OTHER * SCAN-ULTRASOUND REPORT (12/03/2023 12:00 AM CDT) Anatomical Region Laterality Modality Other Scanner OTHER * (ABNORMAL) CBC WITH AUTO DIFFERENTIAL (11/29/2023 4:08 PM CDT) Only the most recent of2 resultswithin the time period is included. WHITE BLOOD COUNT 10.1 4.5 - 11.0 thou/cu mm 11/29/2023 4:21 PM CDT [facility] RED BLOOD COUNT 4.63 4.00 - 5.20 mil/cu mm 11/29/2023 4:21 PM CDT [facility] HEMOGLOBIN 13.6 12.0 - 16.0 g/dL 11/29/2023 4:21 PM [facility] HEMATOCRIT 41.9 33.0 - 51.0 % 11/29/2023 4:21 PM [facility] MCV 91 80 - 100 fL 11/29/2023 4:21 PM [facility] MCH 29.4 26.0 - 34.0 pg 11/29/2023 4:21 PM [facility] MCHC 32.5 32.0 - 36.0 g/dL 11/29/2023 4:21 PM [facility] RDW 13.5 11.5 - 15.5 % 11/29/2023 4:21 PM [facility] PLATELET COUNT 358 140 - 440 thou/cu mm 11/29/2023 4:21 PM [facility] MPV 9.5 6.5 - 11.0 fL 11/29/2023 4:21 PM [facility] % NEUT 71.0 % 11/29/2023 4:21 PM [facility] % LYMPH 16.8 % 11/29/2023 4:21 PM [facility] % MONO 8.6 % 11/29/2023 4:21 PM [facility] % EOS 3.4 % 11/29/2023 4:21 PM [facility] % BASO 0.2 % 11/29/2023 4:21 PM [facility] ABSOLUTE NEUTROPHILS 7.2(H) 1.7 - 7.0 thou/cu mm 11/29/2023 4:21 PM [facility] ABSOLUTE LYMPHOCYTES 1.7 0.9 - 2.9 thou/cu mm 11/29/2023 4:21 PM [facility] ABSOLUTE MONOCYTES 0.9(H) <0.9 thou/cu mm 11/29/2023 4:21 PM [facility] ABSOLUTE EOSINOPHILS 0.3 <0.5 thou/cu mm 11/29/2023 4:21 PM [facility] ABSOLUTE BASOPHILS 0.0 <0.3 thou/cu mm 11/29/2023 4:21 PM [facility] Blood BLOOD SPECIMEN / Unknown Venipuncture / Unknown 11/29/2023 4:08 PM CDT 11/29/2023 4:08 PM CDT Elsi Arrooy Palmer HEMATOLOGY [facility] [address] [place] [address] * (ABNORMAL) COMP METABOLIC PANEL (11/29/2023 4:08 PM CDT) SODIUM 140 136 - 145 mmol/L 11/29/2023 4:40 PM [facility] POTASSIUM 3.7 3.5 - 5.1 mmol/L 11/29/2023 4:40 PM [facility] CHLORIDE 102 98 - 107 mmol/L 11/29/2023 4:40 PM [facility] CO2,TOTAL 27 22 - 29 mmol/L 11/29/2023 4:40 PM [facility] ANION GAP 11 5 - 18 11/29/2023 4:40 PM [facility] GLUCOSE 96 70 - 99 mg/dL 11/29/2023 4:40 PM [facility] CALCIUM 10.4(H) 8.6 - 10.0 mg/dL 11/29/2023 4:40 PM [facility] BUN 14 6 - 20 mg/dL 11/29/2023 4:40 PM [facility] CREATININE 0.79 0.50 - 0.90 mg/dL 11/29/2023 4:40 PM [facility] BUN/CREAT RATIO 18 10 - 20 4:40 PM [facility] eGFR >90 >90 mL/min/1.7 3m2 11/29/2023 4:40 PM [facility] Comment:As of 2021, eG FR is calculated by the CKD-EPI creatinine equation without race adjustment. ??eGFR can be influenced by muscle mass, exercise, and diet. ??The reported eGFR is an estimation only and is only applicable if the renal function is stable. ALBUMIN 4.6 4.0 - 4.9 g/dL 11/29/2023 4:40 PM CDT [facility] PROTEIN,TOTAL 7.9 6.0 - 8.0 g/dL 11/29/2023 4:40 PM CDT [facility] BILIRUBIN,TOTAL 0.2 0.0 - 1.2 mg/dL 11/29/2023 4:40 PM CDT [facility] ALK PHOSPHATASE 93 35 - 104 IU/L 11/29/2023 4:40 PM T [facility] ALT (SGPT) 9(L) 10 - 35 IU/L 11/29/2023 4:40 PM CDT [facility] AST (SGOT) 21 10 - 35 IU/L 11/29/2023 4:40 PM CDT [facility] Blood BLOOD SPECIMEN / Unknown Venipuncture / Unknown 11/29/2023 4:08 PM CDT 11/29/2023 4:08 PM CDT Elsi Chakraborty DO CHEMISTRY Performing Organization Address City/[facility]/ZIP Co de Phone Number [facility] [address] [place] [address] * TROPONIN T (HS) ONE TIME (11/13/2023 2:13 PM CDT) TROPONIN T HS 8 6-10 ng/L ng/L 11/13/2023 3:05 PM CDT [facility] Blood BLOOD SPECIMEN / Unknown Venipuncture / Unknown 11/13/2023 2:13 PM CDT 11/13/2023 2:17 PM CDT Neal Rico MD CHEMISTRY Performing Organization Address City/[facility]/ZIP Co de Phone Number [facility] [address] [place] [address] * XR CHEST 2 VIEWS PA AND [...] show no acute abnormality. Procedure Note Bertin Orantes DO - 11/13/2023 For Patients: As a result [...] - 145 mmol/L 11/13/2023 12:28 PM CDT [facility] POTASSIUM, POCT 3.7 3.5 - 5.0 mmol/L 11/13/2023 12:28 PM [facility] CHLORIDE, POCT 104 98 - 107 mmol/L 11/13/2023 12:28 PM [facility] CO2,TOTAL, POCT 27 21 - 31 mmol/L 11/13/2023 12:28 PM [facility] ANION GAP, POCT 13 5 - 18 12:28 PM [facility] GLUCOSE, POCT 100(H) 70 - 99 mg/dL 11/13/2023 12:28 PM [facility] IONIZED CALCIUM, POCT 1.19 1.15 - 1.27 mmol/L 11/13/2023 12:28 PM [facility] BUN, POCT 14 8 - 25 mg/dL 11/13/2023 12:28 PM [facility] CREATININE, POCT 0.80 0.57 - 1.11 mg/dL 11/13/2023 12:28 PM [facility] Comment:Caution: Patients ta blas Hydroxyurea have falsely increased iStat Creatinine results. Verify creatinine results ordering a Creatinine (88817.2) BUN/CREAT RATIO, POCT 18 10 - 20 11/13/2023 12:28 PM [facility] eGFR 90(L) >90 mL/min/1.7 3m2 11/13/2023 12:28 PM [facility] Comment:As of 2021, eG FR is calculated by the CKD-EPI creatinine equation without race adjustment. eGFR can be influenced by muscle mass, exercise, and diet. The reported eGFR is an estimation only and is only applicable if the renal function is stable. Blood BLOOD SPECIMEN / Unknown 11/13/2023 12:24 PM CDT 11/13/2023 12:28 PM CDT Neal Rico MD CHEMISTRY [facility] [address] [place] [address] * TROPONIN I QUAL POC (11/13/2023 12:21 PM CDT) TROPONIN I,QUAL,POC Negative Negative 11/13/2023 12:35 PM CDT [facility] TROPONIN I,QUAL, POCT <0.03 <0.03 11/13/2023 12:35 PM CDT [facility] Blood BLOOD SPECIMEN / Unknown 11/13/2023 12:21 PM CDT 11/13/2023 12:35 PM CDT Neal Rico MD CHEMISTRY [facility] [address] [place] [address] * TROPONIN T (HS) ACUTE W/2HR REFLEX (11/13/2023 12:13 PM CDT) Pathologist [facility] TROPONIN T HS 8 6-10 ng/L ng/L 11/13/2023 1:[address] [facility] Blood BLOOD SPECIMEN / Unknown Venipuncture / Unknown 11/13/2023 12:13 PM CDT 11/13/2023 12:17 PM CDT [facility] - 11/13/2023 1:59 PM CDT hs-cTnT ([employer] [...] department patient population. Neal Rico MD CHEMISTRY Performing Organization Address City/State/[facility] Co de Phone Number [facility] [address] [address] * CBC W PLT NO DIFF (11/13/2023 12:13 PM CDT) WHITE BLOOD COUNT 9.0 4.5 - 11.0 thou/cu mm 11/13/2023 12:21 PM [facility] RED BLOOD COUNT 4.63 4.00 - 5.20 mil/cu mm 11/13/2023 12:21 PM T [facility] HEMOGLOBIN 13.8 12.0 - 16.0 g/dL 11/13/2023 12:21 PM CDT [facility] HEMATOCRIT 41.5 33.0 - 51.0 % 11/13/2023 12:21 PM [facility] MCV 90 80 - 100 fL 11/13/2023 12:21 PM CDT [facility] MCH 29.8 26.0 - 34.0 pg 11/13/2023 12:21 PM [facility] MCHC 33.3 32.0 - 36.0 g/dL 11/13/2023 12:21 PM [facility] RDW 14.0 11.5 - 15.5 % 11/13/2023 12:21 PM CDT [facility] PLATELET COUNT 335 140 - 440 thou/cu mm 11/13/2023 12:21 PM CDT [facility] MPV 9.5 6.5 - 11.0 fL 11/13/2023 12:21 PM CDT [facility] Blood BLOOD SPECIMEN / Unknown Venipuncture / Unknown 11/13/2023 12:13 PM CDT 11/13/2023 12:17 PM CDT Neal Rico MD HEMATOLOGY Performing Organization Address City/[facility]/ZIP Co de Phone Number [facility] [address] [place] [address] * EKG 12 LEAD (11/13/2023 12:09 PM [...] NOW QTc 421 ms BEYOND NOW P [place] 64 degrees BEYOND NOW R [place] 47 degrees BEYOND NOW T [place] 30 degrees BEYOND NOW 11/13/2023 12:0 9 PM CDT 11/13/2023 12:16 PM CDT Neal Rico MD EKG ORD Performing Organization Address City/[facility] Co de Phone Number [facility] NOW [place], [place] * XR MAMMO EDWARD BILAT SCREEN [...] For Patients: As a result of the Century Cures Act, medical imaging exams and procedure reports are released immediately into your electronic medical record. You may view this report before your referring provider. If you have questions, please contact your health care provider. XR MAMMO EDWARD BILAT SCREEN [[id number]] CLINICAL HISTORY: ??This is an asymptomatic 50 [...] 16 Negative Negative 01/17/2023 2:55 PM CDT [facility] TYPE 18 Negative Negative 01/17/2023 2:55 PM CDT [facility] OTHER HIGH RISK TYPES Negative Negative 01/17/2023 2:55 PM CDT [facility] Other (Cervical/Vagina l) Non-Blood / Unknown 01/12/2023 4:00 PM CDT 01/15/2023 1:43 PM CDT Narrative [facility] 01/17/2023 2:55 PM CDT HPV types 16, 18, 31, 33, 35, 39, 45, 51, 52, 56, 58, 59, 66 and 68 DNA were undetectable or below the pre-set threshold. Methodology: Trisha Jaclyn 4800 HPV Test Elsi Chakraborty DO MICROBIOLOGY [facility] [address] [place] [address], [place] * (ABNORMAL) LIPID PANEL W REFLEX MEASURED LDL (01/17/2022 10:00 AM CDT) CHOLESTEROL,TOTAL 224(H) 100 - 199 mg/dL 01/17/2022 10:29 PM CDT [facility] TRIGLYCERIDES 109 <150 mg/dL 01/17/2022 10:29 PM CDT [facility] HDL CHOLESTEROL 42 >40 mg/dL 10:29 PM CDT [facility] NON-HDL CHOLESTEROL 182(H) <145 mg/dl 01/17/2022 10:29 PM CDT [facility] CHOL/HDL RATIO 5.33(H) <4.50 01/17/2022 10:29 PM CDT [facility] LDL CHOLESTEROL 160(H) <=130 mg/dL 01/17/2022 10:29 PM CDT [facility] VLDL CHOLESTEROL 22 <=30 mg/dL 01/17/2022 10:29 PM CDT [facility] PROVIDER ORDERED STATUS RANDOM 01/17/2022 10:29 PM CDT [facility] Blood BLOOD SPECIMEN / Unknown Venipuncture / Unknown 01/17/2022 10:00 AM CDT 01/17/2022 10:03 AM CDT Elsi Chakraborty DO CHEMISTRY [facility] [address] [place] [address], [facility] [address] [place] [address] * ANTI HCV (01/17/2022 10:00 AM CDT) HEPATITIS C ANTIBODY Non-React orly Non-React orly 01/17/2022 9:11 PM CDT [facility] Comment:Antibodies to HCV no t detected; does not exclude the possibility of exposure to HCV. Blood BLOOD SPECIMEN / Unknown Venipuncture / Unknown 01/17/2022 10:00 AM CDT 01/17/2022 10:03 AM CDT Elsi Chakraborty DO SEND OUTS [facility]AL LABORATORY [address] [place] [address], [place] * SCAN-COLONOSCOPY (11/20/2018 3:00 PM CDT) Narrative Procedure Note Fabrice Hartman MD - 11/20/2018 2:07 PM CDT [facility] [address], [address], [place] [address] Patient Name: Subhash Perez Gender: Female Exam Date: 11/20/2018 Visit Number: [id number] Age: 47 Years Date of : 1970 Attending MD: Fabrice Hartman MD Medical Record#: [id number] Procedure: Colonoscopy Indications: Change in bowel habits [...] as needed / scheduled. _Electronically signed by: Fabrice Hartman MD 11/20/2018 cc: Elsi Chakraborty DO [...] 11:01 AM 12/16/2013 9:31 PM Care Teams Scrap Dealer Relationship Specialty Start Date End Date Elsi Chakraborty DO [address] [place] [address] ANDRE Cabrera [id number] PCP - General Internal Medicine 01/17/18
== END 2024-01-07 15:06 | disposition home or self-care (01) ==
LOC: NFLDREF 15:09
PROVIDERS: PCP Internal Medicine; Visit Provider Obstetrics & Gynecology
DX: R21 Rash and other nonspecific skin eruption (principal); L03.90 Cellulitis, unspecified; T14.8XXA Other injury of unspecified body region, initial encounter; N39.0 Urinary tract infection, site not specified
CPT/HCPCS: 87070

== ENCOUNTER 2024-02-01 08:58 | Outpatient (CLI) | payer BC, SELFPAY ==
--- NOTE | 2024-02-01 09:15 | CRLHL7_ITS ---
For Patients: As a result of the Century Cures Act, medical imaging exams and procedure reports are released immediately into your electronic medical record. You may view this report before your referring provider. If you have questions, please contact your health care provider. INDICATION: post surgical laparoscopic hysteroscopy x 6 wks ago. fatigue, no bleeding or pain. COMPARISON: 12/03/2023 TECHNIQUE: 2D cosme scale and color Doppler images were acquired of the pelvis using a transabdominal and transvaginal approach. FINDINGS: Uterus is absent. Vaginal cuff intact. No pelvic fluid collection or abscess. Right ovary measures 3.1 x 3.0 x 3.1 cm. No abnormal vascularity. Left ovary surgically absent IMPRESSION: No suspicious findings status post hysterectomy. Dictated by Henrry Can MD @ 02/01/2024 1:57:41 PM (Electronically Signed)
== END 2024-02-01 08:59 | disposition home or self-care (01) ==
LOC: US 08:58
PROVIDERS: PCP Internal Medicine; Visit Provider Obstetrics & Gynecology
DX: R53.83 Other fatigue (principal); M54.9 Dorsalgia, unspecified; Z90.710 Acquired absence of both cervix and uterus
CPT/HCPCS: 76830; 76856

== ENCOUNTER 2025-01-06 14:11 | Outpatient (CLI) | payer BC, SELFPAY ==
[2025-01-06 20:25] LABS: Bacterial Vaginosis* POSITIVE (Negative); Candida glab/krus NOT DETECTED (No Detected)
== END 2025-01-06 14:12 | disposition home or self-care (01) ==
LOC: NFLDREF 14:12
PROVIDERS: PCP Internal Medicine; Visit Provider Obstetrics & Gynecology
DX: N89.8 Other specified noninflammatory disorders of vagina (principal)
CPT/HCPCS: 81513; 87481; 87661

== ENCOUNTER 2025-01-16 14:32 | Outpatient (CLI) | payer BC, SELFPAY ==
[2025-01-16 20:08] LABS: Bacterial Vaginosis* Negative (Negative); Candida glab/krus NOT DETECTED (No Detected)
== END 2025-01-16 14:33 | disposition home or self-care (01) ==
LOC: NFLDREF 14:32
PROVIDERS: PCP Internal Medicine; Visit Provider Registered Nurse
DX: N76.0 Acute vaginitis (principal); B96.89 Other specified bacterial agents as the cause of diseases classified elsewhere
CPT/HCPCS: 81513; 87481; 87661